=== PATIENT | female | born 1955 | race Caucasian/White ===

== ENCOUNTER 2022-08-08 10:46 | Emergency (ER) | payer MEDICARE, SELFPAY ==
--- NOTE | ~2022-08-08 | XR_ITS ---
EXAMINATION: XR ankle RT min 3V INDICATION: Right ankle pain and swelling, history of fracture TECHNIQUE: Four views of the right ankle are obtained. COMPARISON: None available FINDINGS: No definite acute fracture is identified. There is moderate arthritis at the tibiotalar thanh nt. There is mild soft tissue swelling of ankle. Posterior and plantar calcaneal enthesophytes are no stephanie. There is a healed fracture of the distal tibia. Moderate osteoarthritis is noted in the midfoot. IMPRESSION: 1. Osteoarthritis and prior fractures without evidence of acute osseous abnormality. Reviewed, dictated and finalized at location B. IMPRESSION: 1. Osteoarthritis and prior fractures without evidence of acute osseous abnorma lity.
[2022-08-08 11:06] VITALS: BP 125/79; PULSE 68; RESP 16; TEMP 36.2; O2SAT 96
--- NOTE | 2022-08-08 11:42 | ED.LOWEXIN ---
HPI - Extremity Injury (Lower) General Chief Complaint: Extremity Injury, Lower Stated Complaint: rt ankle pain Time Seen by Provider: 08/08/22 11:30 History of Present Illness HPI Narrative: Emma Marquez is a 67 yo female with a PMH of A. fib comes to [facility] with stiffness and tightness, swelling and right ankle that has been going on for a number of weeks and she is concerned that she is has an underlying injury and reinjuring it with her activities. She and her bike/Anai/walk a treadmill 3 times a week for a total of 20 miles each day and she describes that when she gets off the treadmill she can definitely feel it in her right ankle but yet she cannot really describe it as pain walking around normally. She has a plafond fracture that was healed nonsurgically, and states there is always a little bit of tightness and some edema around that site but this is more than is normally present Related Data Home Medications Medication Instructions Recorded Confirmed diltiazem HCl 180 mg 180 mg PO DAILY 08/21/21 08/08/22 capsule,extended release 24 hr metoprolol succinate 25 mg 25 mg PO DAILY 08/21/21 08/08/22 tablet,extended release 24 hr spironolactone 25 mg tablet 25 mg PO BID 10/14/21 08/08/22 Allergies Allergy/AdvReac Type Severity Reaction Status Date / Time ephedrine Allergy Unknown Unknown Verified 08/08/22 11:34 sulfamethoxazole Allergy Unknown Unknown Verified 08/08/22 11:34 [From Bactrim] trimethoprim [From Bactrim] Allergy Unknown Unknown Verified 08/08/22 11:34 Review of Systems Review of Systems: CONSTITUTIONAL: Denies fever, chills, sweats. EYES: Denies visual changes, redness, discharge. ENT: Denies rhinorrhea, congestion, sore throat, otalgia. CARDIOVASCULAR: Denies chest pain, palpitations, edema. RESPIRATORY: Denies dyspnea, wheezing, cough GASTROINTESTINAL: Denies abdominal pain, nausea, vomiting, diarrhea. GENITOURINARY: Denies dysuria, hematuria, abnormal discharge SKIN: Denies rash or itching. NEUROLOGIC: Denies numbness, or focal weakness. PSYCHIATRIC: Denies anxiety or depression. Right ankle edema and tightness PMFSH Past Medical History Medical History Atrial fibrillation and flutter History of shingles (~05/2007) History of stress test (~2011) History of tibial fracture (~07/03/12) Rt (Non Operative) Sleep apnea Surgical History Surgical History History of breast biopsy (~1988) History of breast biopsy (~04/2007) Cyst Removed (Negative) History of (~1979) History of cholecystectomy (~10/07/12) History of surgical removal of ganglion cyst (~09/2010) Lt Lateral Ankle History of wisdom tooth extraction (~2002) Lower Left History of wisdom tooth extraction (~2005) Upper Left History of wisdom tooth extraction (~2008) Right Hx of LASIK (~12/1999) Family History Family History Mother Kidney failure Hypertension Heart disease Father Hypertension Heart disease Parkinsons Social History Social History Smoking status: Never smoker Comments At time of signature, I agree with nursing past medical, surgical, social and family history. There is no relevant family history pertinent to the presenting complaint. Exam Narrative: GENERAL: This is a well-nourished, well-developed patient, in mild distress. HEAD: normocephalic, atraumatic. EYES: Sclera clear/white. Vision is grossly intact. EARS: External ears normal,. Hearing grossly intact. NOSE: External nose normal without nasal discharge, nares without redness, no rhinorrhea. THROAT: Mucous membranes moist, NECK: Neck supple, CARDIOVASCULAR: Regular rate and rhythm without murmurs, gallops, or rubs. RESPIRATORY: Clear to auscultation. Breath sounds equal bilaterally. N
== END 2022-08-08 12:00 | disposition home or self-care (01) ==
PROVIDERS: Emergency Provider Nurse Practitioner; PCP Internal Medicine
DX: M19.171 Post-traumatic osteoarthritis, right ankle and foot (principal); I48.91 Unspecified atrial fibrillation; G47.30 Sleep apnea, unspecified
CPT/HCPCS: 73610; 99213; G0463

== ENCOUNTER 2024-07-06 18:29 | Emergency (ER) | payer MEDICARE, SELFPAY ==
--- NOTE | 2024-07-06 18:40 | ECG_ITS ---
Test Date: 2024-07-06 18:51:21 Measurements Intervals [place] Rate: 70 P: 47 LA: 148 QRS: -9 QRSD: 98 T: 0 QT: 383 QTc: 414 Interpretive Statements SINUS RHYTHM WITH SINUS ARRHYTHMIA MODERATE VOLTAGE CRITERIA FOR LVH, CONSIDER NORMAL VARIANT [MEETS CRITERIA IN ONE OF: R(aVL), S(V1), R(V5), R(V5/V6)+S(V1)] No previous ECG available for comparison Electronically Signed On 07-07-2024 09:52:35 CDT by Dean Naylor M.D.
--- NOTE | 2024-07-06 18:40 | ED.ARRPALP ---
HPI - Arrhythmia/Palpitations General Chief Complaint: Arrhythmia/Palpitations Stated Complaint: heart racing Time Seen by Provider: 07/06/24 18:41 Source: patient, RN notes reviewed and old records reviewed Mode of arrival: ambulatory Limitations: no limitations History of Present Illness HPI narrative: Patient was prescribed a Medrol Dosepak for poison tahira 3 days ago. She reports that she has been taking it as prescribed, ever since she started taking, she has noticed that she is having heart palpitations. She denies any chest pain or shortness of breath. She reports that she is anxious since starting the medication. States that she took at 7 years ago, felt similarly. She did feel well enough to go cycling this afternoon. She did take a tracing of her heart with her smart phone device, there were isolated PVCs, no couplets or triplets. She is not in any distress upon arrival. She is accompanied by her Related Data Home Medications Medication Instructions Recorded Confirmed diltiazem HCl 180 mg 180 mg PO DAILY 08/21/21 07/06/24 capsule,extended release 24 hr metoprolol succinate 25 mg 25 mg PO DAILY 08/21/21 07/06/24 tablet,extended release 24 hr spironolactone 25 mg tablet 25 mg PO BID 10/14/21 07/06/24 doxycycline hyclate 20 mg tablet 40 mg PO DAILY 07/06/24 07/06/24 Allergies Allergy/AdvReac Type Severity Reaction Status Date / Time ephedrine AdvReac Severe Palpitation Verified 07/06/24 19:10 s sulfamethoxazole AdvReac Mild Photosensit Verified 07/06/24 19:10 [From Bactrim] ivity trimethoprim [From Bactrim] AdvReac Mild Photosensit Verified 07/06/24 19:10 ivity Review of Systems Review of Systems: All systems reviewed & are unremarkable except as noted in HPI and below Constitutional: Constitutional: Reports no additional constitutional complaints ENT: Reports system reviewed and no additional complaints, except as documented Cardiovascular: Cardiovascular: Reports as per HPI, Reports no additional cardiovascular complaints, Denies syncope, Reports irregular heart rhythm, Denies palpitations and Denies dyspnea Respiratory: Respiratory: Reports no additional respiratory complaints Gastrointestinal: Gastrointestinal: Reports no additional gastrointestinal complaints Integumentary/Breasts: Skin/Breast: Reports rash ( poison tahira being treated with Medrol Dosepak) Psychiatric: Psychiatric: Reports anxiety ( since starting Medrol Dosepak) [facility] Past Medical History Medical History Atrial fibrillation and flutter History of shingles (~05/2007) History of stress test (~2011) History of tibial fracture (~07/03/12) Rt (Non Operative) Sleep apnea Surgical History Surgical History History of breast biopsy (~1988) History of breast biopsy (~04/2007) Cyst Removed (Negative) History of (~1979) History of cholecystectomy (~10/07/12) History of surgical removal of ganglion cyst (~09/2010) Lt Lateral Ankle History of wisdom tooth extraction (~2002) Lower Left History of wisdom tooth extraction (~2005) Upper Left History of wisdom tooth extraction (~2008) Right Hx of LASIK (~12/1999) Family History Family History Mother Kidney failure Hypertension Heart disease Father Hypertension Heart disease Parkinsons Social History Social History Smoking status: Never smoker Exam Const: General: cooperative, no acute distress, alert and awake Orientation/consciousness: oriented to person, oriented to place and oriented to time HENMT: Head: normal to inspection Resp: Effort & Inspection: normal respiratory effort and able to speak in complete sentences Auscultation: clear to auscultation bilaterally, no crackles, no rales, no rhonchi and
[2024-07-06 18:48] VITALS: BP 165/76; PULSE 71; RESP 16; TEMP 36.3; O2SAT 97
[2024-07-06 19:04] VITALS: BP 155/85
== END 2024-07-06 19:07 | disposition home or self-care (01) ==
PROVIDERS: Emergency Provider Nurse Practitioner Family; PCP Internal Medicine
DX: R00.2 Palpitations (principal); I48.91 Unspecified atrial fibrillation
CPT/HCPCS: 93005; 99213; G0463

== ENCOUNTER 2024-07-08 12:54 | Emergency (ER) | payer MEDICARE, SELFPAY ==
[2024-07-08 12:58] VITALS: BP 146/86; PULSE 80; RESP 20; TEMP 36.4; O2SAT 99
--- NOTE | 2024-07-08 13:07 | ECG_ITS ---
Test Date: 2024-07-08 13:23:40 Measurements Intervals [place] Rate: 72 P: 29 NH: 144 QRS: -18 QRSD: 82 T: 30 QT: 373 QTc: 411 Interpretive Statements SINUS RHYTHM MINIMAL VOLTAGE CRITERIA FOR LVH, CONSIDER NORMAL VARIANT [MEETS CRITERIA IN ONE OF: R(aVL), S(V1), R(V5), R(V5/V6)+S(V1)] WITHIN NORMAL LIMITS Compared to ECG 07/06/2024 18:51:21 NO DIFFERENCE Electronically Signed On 07-08-2024 15:14:32 CDT by Rahul Montaño M.D.
[2024-07-08 15:37] VITALS: BP 135/72; PULSE 68; RESP 13; O2SAT 15
[2024-07-08 15:55] VITALS: PULSE 74
--- NOTE | 2024-07-08 16:03 | ED.ARRPALP ---
HPI - Arrhythmia/Palpitations General Chief Complaint: Arrhythmia/Palpitations Stated Complaint: PVCs from solumedrol Time Seen by Provider: 07/08/24 15:28 Source: patient Mode of arrival: ambulatory Limitations: no limitations History of Present Illness HPI narrative: this is a 69-year-old female who presents to the ED for chief complaint of possible PVCs. States that she stated steroid pack this week for poison tahira rash. States that she has been feeling some irregular heartbeats and took a rhythm strip at home that showed PVCs. she called the pharmacist and stopped the steroids 2 days ago. Denies chest pain, shortness of breath , abdominal pain, fevers, chills. States that poison tahira rash is getting better. Related Data Home Medications Medication Instructions Recorded Confirmed diltiazem HCl 180 mg 180 mg PO DAILY 08/21/21 07/06/24 capsule,extended release 24 hr metoprolol succinate 25 mg 25 mg PO DAILY 08/21/21 07/06/24 tablet,extended release 24 hr spironolactone 25 mg tablet 25 mg PO BID 10/14/21 07/06/24 doxycycline hyclate 20 mg tablet 40 mg PO DAILY 07/06/24 07/06/24 Allergies Allergy/AdvReac Type Severity Reaction Status Date / Time ephedrine AdvReac Severe Palpitation Verified 07/06/24 19:10 s sulfamethoxazole AdvReac Mild Photosensit Verified 07/06/24 19:10 [From Bactrim] ivity trimethoprim [From Bactrim] AdvReac Mild Photosensit Verified 07/06/24 19:10 ivity Review of Systems Review of Systems: All systems as dictated in HPI [facility] Past Medical History Medical History Atrial fibrillation and flutter History of shingles (~05/2007) History of stress test (~2011) History of tibial fracture (~07/03/12) Rt (Non Operative) Sleep apnea Surgical History Surgical History History of breast biopsy (~1988) History of breast biopsy (~04/2007) Cyst Removed (Negative) History of (~1979) History of cholecystectomy (~11/15/12) History of surgical removal of ganglion cyst (~09/2010) Lt Lateral Ankle History of wisdom tooth extraction (~2002) Lower Left History of wisdom tooth extraction (~2005) Upper Left History of wisdom tooth extraction (~2008) Right Hx of LASIK (~12/1999) Family History Family History Mother Kidney failure Hypertension Heart disease Father Hypertension Heart disease Parkinsons Social History Social History Smoking status: Never smoker Exam Narrative: GENERAL: Well-appearing, well-nourished, and in no acute distress. HEAD: Normocephalic, atraumatic. EYES: PERRLA and EOMI. ENT: Nares clear, no rhinorrhea or epistaxis. Mucous membranes moist. Oropharynx without tonsillar hypertrophy exudate or other lesions. NECK: Supple. No adenopathy or masses. CHEST: No respiratory distress. Clear to auscultation. No wheezes rales or rhonchi HEART: Regular rate and rhythm. No murmur heard. Normal peripheral pulses. ABDOMEN: Soft, nontender, nondistended, normal active bowel sounds. MSK: Normal range of motion. No edema. SKIN: Warm, dry, no rash. NEURO: Alert and oriented x4. No focal deficits. PSYCH: Normal mood and affect. Course Vital Signs Vital signs: Vital Signs Temperature 97.6 F 07/08/24 12:58 Pulse Rate 80 07/08/24 12:58 Respiratory Rate 20 07/08/24 12:58 Blood Pressure 146/86 H 07/08/24 12:58 Pulse Oximetry 99 07/08/24 12:58 Oxygen Delivery Room Air 07/08/24 12:58 Temperature 97.6 F 07/08/24 12:58 Pulse Rate 71 07/08/24 16:04 Respiratory Rate 12 07/08/24 16:04 Blood Pressure 116/77 07/08/24 16:04 Pulse Oximetry 99 07/08/24 16:04 Oxygen Delivery Room Air 07/08/24 12:58 MDM - Arrhythmia/Palpitations MDM Narrative Medical decision making anthony
[2024-07-08 16:04] VITALS: BP 116/77; PULSE 71; RESP 12; O2SAT 99
[2024-07-08 16:37] LABS: Basophils Absolute Auto 0.1 K/mm3 (0.0-0.1); Eosinophils Absolute Auto 0.1 K/mm3 (0-0.3); Eosinophils Percent Auto 0.9 % (0-4.4); Hemoglobin 15.8 g/dL (12.0-15.0); Immature Granulocyte Absolute 0.05 K/mm3 (0.00-0.031); Immature Granulocyte Percent A 0.4 % (0-0.5); Lymphocytes Absolute Auto 3.23 K/mm3 (0.9-3.2); Lymphocytes Percent Auto 28.7 % (18.3-44.2); Mean Corpuscular HGB Conc 33.6 g/dl (32-36); Mean Corpuscular Volume 95.1 fl (80-100); Monocytes Percent Auto 8.7 % (2.6-8.5); Neutrophils Absolute Auto 6.8 K/mm3 (1.3-6.7); Neutrophils Percent Auto 60.3 % (45.5-73.1); Platelet Count Result 252 k/mm3 (150-375); Red Blood Count 4.94 M/mm3 (4.2-5.4); Red Cell Distribution Width 13.6 % (11.5-14.5); White Blood Count 11.3 K/mm3 (4.5-10.0)
[2024-07-08 16:59] LABS: Magnesium 2.1 mg/dL (1.6-2.3)
[2024-07-08 17:00] LABS: Alanine Aminotransferase 22 U/L (6-35); Albumin Level 4.4 g/dL (3.5-5.1); Alkaline Phosphatase 71 U/L (38-126); Anion Gap 7 mmol/L (4-12); Aspartate Amino Transferase 27 U/L (14-36); Bilirubin,Total 0.6 mg/dL (0.2-1.3); Blood Urea Nitrogen 18 mg/dL (7-17); Calcium 9.4 mg/dL (8.4-10.2); Carbon Dioxide 33 mmol/L (22-30); Chloride 96 mmol/L (98-107); Estimated CRCL calculation 73 ml/min; Estimated Glomerular Filt Rate > 60; Glucose 107 mg/dL (65-110); Potassium 4.2 mmol/L (3.4-5.0); Sodium 136 mmol/L (137-145)
== END 2024-07-08 15:30 | disposition home or self-care (01) ==
PROVIDERS: Emergency Provider Physician Assistant; PCP Internal Medicine
DX: I49.3 Ventricular premature depolarization (principal); R00.2 Palpitations; I48.91 Unspecified atrial fibrillation; I48.92 Unspecified atrial flutter; G47.30 Sleep apnea, unspecified; Z90.49 Acquired absence of other specified parts of digestive tract
CPT/HCPCS: 36415; 80053; 83735; 85025; 93005; 99284

== ENCOUNTER 2024-08-27 01:14 | Emergency (ER) | payer MEDICARE, SELFPAY ==
[2024-08-27 01:18] VITALS: BP 172/99; PULSE 73; RESP 15; O2SAT 97
[2024-08-27 01:27] VITALS: O2SAT 98
[2024-08-27] MEDS: FAMOTIDINE 20 MG/2 ML VIAL IV PUSH (01:59)
[2024-08-27] MEDS: dexAMETHasone SOD PHOS INJ 10 MG/ML 1 ML VIAL IV PUSH (01:59)
[2024-08-27] MEDS: diphenhydrAMINE HCl INJ 50 MG/ML VIAL 25 MG IV PUSH (01:59)
[2024-08-27 02:17] VITALS: BP 135/78; PULSE 70; RESP 15; O2SAT 96
--- NOTE | 2024-08-27 02:18 | ED.GENADULT ---
HPI - General Adult General Chief complaint: Allergic Reaction Stated complaint: angioedema Time Seen by Provider: 08/27/24 01:35 History of Present Illness HPI narrative: Patient 69-year-old female presents emergency department with chief complaint of angioedema. The patient reports she ate some new cheese and some crackers this evening and reports that she started having swelling her lips this evening. The patient reports he is not on an SEBASTIÁN-inhibitor reports she has no prior history of Sebastián inhibitor or ARB dosing. Patient states that she has history of atrial fibrillation she is on a beta-logan and calcium channel logan the patient denies shortness of breath denies stridor denies trismus Related Data Home Medications Medication Instructions Recorded Confirmed diltiazem HCl 180 mg 180 mg PO DAILY 08/21/21 07/06/24 capsule,extended release 24 hr metoprolol succinate 25 mg 25 mg PO DAILY 08/21/21 07/06/24 tablet,extended release 24 hr spironolactone 25 mg tablet 25 mg PO BID 10/14/21 07/06/24 doxycycline hyclate 20 mg tablet 40 mg PO DAILY 07/06/24 07/06/24 Allergies Allergy/AdvReac Type Severity Reaction Status Date / Time ephedrine AdvReac Severe Palpitation Verified 08/27/24 01:22 s methylprednisolone AdvReac Intermediate Palpitation Verified 08/27/24 01:23 [From Solu-Medrol] s sulfamethoxazole AdvReac Mild Photosensit Verified 08/27/24 01:22 [From Bactrim] ivity trimethoprim [From Bactrim] AdvReac Mild Photosensit Verified 08/27/24 01:22 ivity Review of Systems Review of Systems: A 10 system review of systems was completed on the patient and is negative except for what is stated in the HPI. Nursing and ancillary documentation was reviewed. [facility] Past Medical History Medical History Atrial fibrillation and flutter History of shingles (~05/2007) History of stress test (~2011) History of tibial fracture (~07/03/12) Rt (Non Operative) Sleep apnea Surgical History Surgical History History of breast biopsy (~1988) History of breast biopsy (~04/2007) Cyst Removed (Negative) History of (~1979) History of cholecystectomy (~10/07/12) History of surgical removal of ganglion cyst (~09/2010) Lt Lateral Ankle History of wisdom tooth extraction (~2002) Lower Left History of wisdom tooth extraction (~2005) Upper Left History of wisdom tooth extraction (~2008) Right Hx of LASIK (~12/1999) Family History Family History Mother Kidney failure Hypertension Heart disease Father Hypertension Heart disease Parkinsons Social History Social History Smoking status: Never smoker Exam Narrative: GENERAL: Well-appearing, well-nourished, and in no acute distress. HEAD: Normocephalic, atraumatic. EYES: PERRLA and EOMI. ENT: Nares clear, no rhinorrhea or epistaxis. Mucous membranes moist. There is angioedema present of the lips there is no trismus there is no stridor there is no angioedema of the tongue there is no airway compromise NECK: Supple. CHEST: Clear to auscultation. No respiratory distress. HEART: Regular rate and rhythm. No murmur heard. Normal peripheral pulses. ABDOMEN: Soft, nontender, nondistended, normal active bowel sounds. EXTREMITIES: Normal range of motion. No edema. SKIN: Warm, dry, no rash. NEURO: No focal deficits. Alert and oriented x3. PSYCH: Normal mood and affect. Course Vital Signs Vital signs: Vital Signs Pulse Rate 73 08/27/24 01:18 Respiratory Rate 15 08/27/24 01:18 Blood Pressure 172/99 H 08/27/24 01:18 Pulse Oximetry 97 08/27/24 01:18 Oxygen Delivery Room Air 08/27/24 01:18 Pulse Rate 70 08/27/24 02:17 Respiratory Rate 15 08/27/24 02:17 Bloo
[2024-08-27 03:15] VITALS: BP 152/80; PULSE 67; RESP 15; O2SAT 98
== END 2024-08-27 03:32 | disposition home or self-care (01) ==
PROVIDERS: Emergency Provider Emergency Medicine; PCP Internal Medicine
DX: T78.3XXA Angioneurotic edema, initial encounter (principal); T78.40XA Allergy, unspecified, initial encounter; X58.XXXA Exposure to other specified factors, initial encounter; I48.91 Unspecified atrial fibrillation; I48.92 Unspecified atrial flutter; G47.30 Sleep apnea, unspecified; Z90.49 Acquired absence of other specified parts of digestive tract; Z79.899 Other long term (current) drug therapy
CPT/HCPCS: 96374; 96375; 99284; J1100; J1200

== ENCOUNTER 2025-04-04 12:18 | Emergency (ER) | payer MEDICARE, SELFPAY ==
--- OUTSIDE RECORDS SUMMARY | 2025-04-04 12:22 | XMS_ITS | Referral Summary ---
Author Organization [facility] [address] Address [address] [place] [address] Phone Care Team Providers Care Naval Engineer Name Role Phone Jayce Naylor MD Primary Care Provider [phone] Brittni Carlson MD Unavailable [phone] [phone] Allergies Active Allergy Reactions Criticality Noted Date Comments Ephedrine Other (See comments) Medium Atrial fibrillation Epinephrine Other (See comments) Low Atrial fibrillation Sulfamethoxazole Rash Medium Trimethoprim Rash Medium Medications dilTIAZem XR (CARDIZEM CD) 180 mg 24 hr capsule take 1 capsule (180MG) by oral route every day 0 2 Active metoprolol XL (TOPROL-XL) 25 mg 24 hr tablet take 1 tablet by oral route every day 0 0 4 Active aspirin 325 mg tablet take 1 tablet by oral route every day 0 0 5 Active Additional Information Patient taking differently:325 mgoral 2 times weekly, Reported on 09/28/2023 spironolactone (ALDACTONE) 25 mg tablet Take 1 tablet (25 mg total) by mouth 2 (two) times a day 3 8 Active Active Problems Problem Noted Date Diagnosed Date Obesity (BMI 30-39.9) 09/21/2020 Systemic hypertension 09/17/2017 Immunizations Immunization Administration Dates Next Due Influenza, Trivalent, IM (MDV) 09/06/2015 Social History Tobacco Use Types Packs/Day Years Used Date Smoking Tobacco: Never Smokeless Tobacco: Never Tobacco Cessation:Counseling Given: Not Answered Alcohol Use Standard Drinks/Week Comments Yes 0 (1 standard drink = 0.6 oz pur e alcohol) Comments No Sex and Gender Information Value Date Recorded Sex Assigned at Not on file Legal Sex 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 Gender Identity Not on file Sexual Orientation Not on file Occupation Industry Job Start Date Job End Date retired Not on file Not on file Not on file Last Filed Vital Signs Vital Sign Reading Time Taken Comments Blood Pressure 119/77 09/28/2023 9:04 AM VENEER LATHE OPERATOR Large Adult Cuff Pulse 66 09/28/2023 9:04 AM VENEER LATHE OPERATOR Temperature 35.9 C (96.6 F) 09/21/2020 8:57 AM CDT Respiratory Rate 16 09/28/2023 9:04 AM VENEER LATHE OPERATOR Oxygen Saturation 95% 09/23/2021 9:2 0 AM CDT Inhaled Oxygen Concentration - - Weight 97.5 kg (215 lb) 09/28/2023 9:04 AM VENEER LATHE OPERATOR Height 165.1 cm (5' 5 ) 09/28/2023 9:04 AM VENEER LATHE OPERATOR Body Mass Index 35.78 09/28/2023 9:04 AM VENEER LATHE OPERATOR Plan of Treatment Not on file Insurance [employer] [facility] [address] MEDICARE [facility] MEDICARE Care Teams Naval Engineer Relationship Specialty Start Date End Date Jayce Naylor [place] [address] PCP - General 04/15/12 Brittni Carlson MD [address] [place] [address] Obstetrics and Gynecology 09/11/17
--- OUTSIDE RECORDS SUMMARY | 2025-04-04 12:22 | XMS_ITS | Encounter Summary ---
Author Organization [facility] Address [facility] [place] [address] Care Team Providers Care Seamer Panty Hose Name Role Phone Jayce Naylor MD Primary Care Provider [phone] Encounter Details Date Type Department Care Team (Late Contact Info) Description 12/14/2024 CSRwaret Message Enc [facility] [place] [address] [place], [place] [id number] Rahul Helton MD Three [facility]. 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 [address] [place] [address] 09/08/2025 10:15 AM CDT Office Visit [facility] [address] [place] [address] Satish Soto MD Three [facility]. [address] [place] [address] documented as of this encounter Visit Diagnoses Not on filedocumented in this encounter Care Teams Seamer Panty Hose Relationship Specialty Start Date End Date Jayce Naylor MD [address] [place] [address] PCP - General INTERNAL MEDICINE 07/05/24 documented as of this encounter
--- OUTSIDE RECORDS SUMMARY | 2025-04-04 12:22 | XMS_ITS | Encounter Summary ---
Author Organization [facility] Address [address] [place] [address] Care Team Providers Care Developer Support Engineer Name Role Phone Jayce Naylor MD Primary Care Provider [phone] Encounter Details Date Type Department Care Team (Late st Contact Info) Description 09/12/2024 Abstract [facility] [address] [place] [address] Rupal Armendariz MA Social History Tobacco Use Types Packs/Day Years Used Date Smoking Tobacco: Former Cigarettes 1 - 1981 Smokeless Tobacco: Never Alcohol Use Standard Drinks/Week Comments Yes 1 (1 standard drink = 0.6 oz pur e alcohol) Comments No Sex and Gender Information Value Date Recorded Sex Assigned at Female 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 [facility] [address] [place] [address] 09/08/2025 10:15 AM CDT Office Visit [facility] [address] [place] [address] Satish Soto MD Three [facility]. [facility] [address] [place] [address] documented as of this encounter Procedures Procedure Name Priority Date/Time Associated Diagnosis Comments COMPREHENSIVE METABOLIC PANEL Routine 07/08/2024 CBC, MANUAL DIFF Routine 07/08/2024 documented in this encounter Results * COMPREHENSIVE METABOLIC PANEL (07/08/2024) SODIUM S/P/B 136 GLUCOSE 107 mg/dL AST 27 BUN 18 CREATININE S/P/B 0.70 0.5 - 1.0 CALCIUM S/P/B 9.4 POTASSIUM S/P/B 4.2 CHLORIDE S/P/B 96 ALT 22 GFR ESTIMATE 73 us Default History Genericprovider LABORATORY Final Result * CBC, MANUAL DIFF (07/08/2024) WBC 11.3 HGB 15.8 HCT 47 PLT 252 us Default History Genericprovider LABORATORY Final Result documented in this encounter Visit Diagnoses Not on filedocumented in this encounter Care Teams Developer Support Engineer Relationship Specialty Start Date End Date Jayce Naylor MD [address] [place] [address] PCP - General INTERNAL MEDICINE 07/05/24 documented as of this encounter
--- OUTSIDE RECORDS SUMMARY | 2025-04-04 12:22 | XMS_ITS | Clinical Summary ---
Author Organization [facility] [address] Address [address] [place] [address] Phone Care Team Providers Care Carton Counter Feeder Name Role Phone Jayce Naylor MD Primary Care Provider [phone] Brittni Carlson MD Unavailable [phone] Allergies Active Allergy Reactions Criticality Noted Date [...] Next Due Influenza, Trivalent, IM (MDV) 09/06/2015 Surgical History Surgery Date Site/Laterality Comments LASIK 11/23/1999 - 11/22/2000 SECTION 11/23/1979 - 11/22/1980 LAPAROSCOPIC CHOLECYSTECTOMY 11/23/2011 - 11/22/2012 BREAST BIOPSY 11/23/1988 - 11/22/1989 ANKLE GANGLION CYST EXCISION 11/23/2009 - 11/22/2010 Medical History Medical History Date Comments Atrial fibrillation (HCC) 1980 Shingles 2006 Premature menopause 1992 Fracture of right tibia 2011 Mild pulmonary hypertension (HCC) 2013 Family History Medical History Relation Name Comments Coronary artery disease Father Heart failure Father COD Hypertension Father Parkinsonism Father Parkinsonism Maternal Grandfather COD Atrial fibrillation Mother Hypertension Mother Kidney failure Mother COD Osteoporosis Mother Breast cancer Mother's Sister Relation Name Status Comments Father (Age 88) Maternal Grandfather Mother (Age 93) Mother's Sister Social History Tobacco Use Types Packs/Day Years Used Date Smoking Tobacco: Never Smokeless Tobacco: Never Tobacco Cessation:Counseling Given: Not Answered Alcohol Use Standard Drinks/Week Comments Yes 0 (1 standard drink = 0.6 oz pur e alcohol) Comments No Sex and Gender Information Value Date Recorded Sex Assigned at Not on file 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 Gender Identity Not on file Sexual Orientation Not on file Occupation Industry Job Start Date Job End Date retired Not on file Not on file Not on file Obstetrics History Para Term AB IAB SAB Ectopic Multiple Livin g Live Births 1 1 1 0 0 0 0 0 0 1 1 Date Outcome GA Total Labor Labor/2nd/3rd Weight Sex Type Anes PTL Cherrie A1 A5 Name Clin Term Last Filed Vital Signs Vital Sign Reading Time Taken Comments Blood Pressure 119/77 09/28/2023 9:04 AM FURNITURE DELIVERY DRIVER Large Adult Cuff Pulse 66 09/28/2023 9:04 AM FURNITURE DELIVERY DRIVER Temperature 35.9 C (96.6 F) 09/21/2020 8:57 AM CDT Respiratory Rate 16 09/28/2023 9:04 AM FURNITURE DELIVERY DRIVER Oxygen Saturation 95% 09/23/2021 9:2 0 AM CDT Inhaled Oxygen Concentration - - Weight 97.5 kg (215 lb) 09/28/2023 9:04 AM FURNITURE DELIVERY DRIVER Height 165.1 cm (5' 5 ) 09/28/2023 9:04 AM FURNITURE DELIVERY DRIVER Body Mass Index 35.78 09/28/2023 9:04 AM FURNITURE DELIVERY DRIVER Plan of Treatment Health Maintenance Due Date Last Done Comments Breast Cancer Screening-Mammogram 1953 Colon Cancer Screening-Colonoscopy 1955 Depression Screening 1953 Fall Risk Assessment 1953 Hepatitis C Screening 1953 Osteoporosis Screening-Bone Density Scan 1953 Hepatitis B Screening 1971 Well Visit 65+ 09/17/2018 09/17/2017 Influenza Vaccine (#1) 2024 , 07/24/2020, 09/29/2019, Additional history exists DTaP/Tdap/Td Vaccine (2 - Td or Tdap) 03/29/2031 03/29/2021 Zoster Vaccine Completed 06/02/2019, 12/2018, 11/23/2014 Pneumococcal vaccine 65+ Completed 09/12/2019, 08/23 [place] [address] [facility] Care Teams Carton Counter Feeder Relationship Specialty Start Date End Date Jayce Naylor MD [address] [place] [address] PCP - General 04/15/12 Brittni Carlson MD [address] [place] [address] Obstetrics and Gynecology 09/11/17
--- OUTSIDE RECORDS SUMMARY | 2025-04-04 12:22 | XMS_ITS | Encounter Summary ---
Author Organization [facility] Address Formerly [facility] [place] [address] Care Team Providers Care Die Casting Supervisor Name Role Phone Jayce Naylor MD Primary Care Provider [phone] Encounter Details Date Type Department Care Team (Late Contact Info) Description 12/28/2024 [employer] Message Enc [facility] [address] [phone] Yudi Bond PA [address] [facility] [address] [place], [place] [phone] Appointment Social History Tobacco Use Types Packs/Day Years Used Date Smoking Tobacco: Former Cigarettes 1 983 - 1981 Smokeless Tobacco: Never Alcohol Use Standard Drinks/Week Comments Not Currently 1.7 (1 standard drink = 0.6 oz p ure alcohol) Comments No Sex and Gender Information Value Date Recorded Sex Assigned at Female 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 [address] [place] [address] 09/08/2025 10:15 AM CDT Office Visit [facility] [address] [place] [address] Satish Soto MD [facility]. [address] [place] [address] documented as of this encounter Visit Diagnoses Not on filedocumented in this encounter Care Teams Die Casting Supervisor Relationship Specialty Start Date End Date Jayce Naylor MD [address] [place] [address] PCP - General INTERNAL MEDICINE 07/05/24 documented as of this encounter
--- OUTSIDE RECORDS SUMMARY | 2025-04-04 12:22 | XMS_ITS | Clinical Summary ---
Author Organization [facility] Address [address] [place] [address] Care Team Providers Care Hot Pipe Gauger Name Role Phone Jayce Naylor MD Primary Care Provider [phone] Allergies Active Allergy Reactions Criticality Noted Date Comments Diltiazem Hives 08/31/2024 IV - PO does not bother her Ephedrine Other (see comment) Medium 05/16/2019 Atrial fibrillation Sudafed - caused first episode of a fib Methylprednisolone Other (see comment) 11/25/2024 PVCs Sulfamethoxazole-Trimethopr im Rash Medium 07/05/2024 Pt was also in sun, unsure if allergy to Bactrim Medications dilTIAZem CD (CARDIZEM CD) 180 MG 24 hr capsule Take 1 capsule (180 mg total) by mouth daily. Active Doxycycline Hyclate 20 MG Tab Take 40 mg by mouth daily. Active ketotifen (ZADITOR) 0.035 % ophthalmic solution 1 drop 2 (two) times daily. Active metoprolol succinate ER (TOPROL-XL) 50 MG 24 hr tablet Take 1 tablet (50 mg total) by mouth nightly. 10/31/2024 Active spironolactone (ALDACTONE) 50 MG tablet Take 1 tablet (50 mg total) by mouth daily. 10/31/2024 Active tirzepatide (ZEPBOUND) 2.5 MG/0.5ML injection Inject 2.5 mg into the skin every 7 days. 12/12/2024 Active aspirin EC (ECOTRIN) 81 MG tablet Take 1 tablet (81 mg total) by mouth daily. 30 tablet 3 01/12/2025 Active clopidogrel (PLAVIX) 75 MG tablet Take 1 tablet (75 mg total) by mouth daily. 30 tablet 3 01/12/2025 Active Active Problems Problem Noted Date Diagnosed Date Class 2 obesity due to exces s calories without serious comorbidity with body mass index (BMI) of 37.0 to 37.9 in adult 12/30/2024 Assessment & Plan (12/30/2024 10:20 AM GROUNDS KEEPER): She is obese with a Body mass index is 37.11 kg/m . She was educated on lifestyle modifications including diet and exercise. PVC (premature ventricular contraction) 12/30/19 Assessment & Plan (12/30/2024 10:21 AM GROUNDS KEEPER): Having monitor to assess PVC burden. Aura 12/29/2024 Vitreous syneresis 12/29/2024 H/O cardiac radiofrequency ablation 12/12/2024 Overview (12/29/2024): 12/02/24 Presence of Watchman left atrial appendage closu re device 12/12/2024 Overview (12/29/2024): 12/02/24 Assessment & Plan (12/30/2024 10:19 AM GROUNDS KEEPER): Continue apixaban until repeat DINA and then required to antiplatelet therapy. Atrial fibrillation ([facility] HHS/[facility]) 12/02/2024 Paroxysmal atrial fibrillation ([facility]) 08/29/2024 Assessment & Plan (12/30/2024 10:19 AM GROUNDS KEEPER): She is status post pulmonary vein isolation. Continue follow-up with electrophysiology. Continue Eliquis until repeat DINA. Continue metoprolol and Cardizem. Assessment & Plan (09/08/2024 10:44 AM CDT): She has documented paroxysmal atrial fibrillation. I discussed in detail the risk of stroke with atrial fibrillation and also discussed management including atrial fibrillation ablation and left atrial appendage closure. I strongly recommended electrophysiology consultation. I also explained to her that there is a significant risk of stroke with atrial fibrillation and explained that aspirin is not enough. I had a lengthy discussion with the patient explaining the role of atrial fibrillation and thromboembolic risk. We specifically discussed the role of the left atrial appendage as a source for thromboembolic processes. Risks for the left atrial appendage clsoure procedure include but are not limited to: bleeding, vascular damage, cardiac perforation requiring pericardiocentesis and possible surgical sternotomy by cardiothoracic surgery, cerebrovascular accident, myocardial infarction, and even rarely . Per published data: 6.5% procedure/device related adverse events per PROTECT AF, 3.0% procedure/device related event in the CAP registry, and in the PREVAIL trial the complication rate was 2.2%. A recent real world registry data shows approximately the similar results as PREVAIL trial. The patient understands that dual antiplatelet therapy will require post left atrial appendage closure. We can try to make an exception and is off label for single antiplatelet therapy. We will repeat a DINA 6 weeks post left atrial appendage implantation. Essential hypertension, benign 04/14/2022 Assessment & Plan (12/30/2024 10:20 AM GROUNDS KEEPER): Her blood pressure is well-controlled. Continue Cardizem and metoprolol. RIVERA (obstructive sleep apnea) Overview (09/08/2024): wears mouth guard Resolved Problems Problem Noted Date Diagnosed Date Resolved Date Encounter for screening colonoscopy 07/05/2024 07/11/2024 Encounter for screening colonoscopy 07/05/2024 09/12/2024 Hyperglycemia 04/14/2022 12/22/2024 Encounters Date Type Department Care Team Description 01/12/2025 12:47 PM GROUNDS KEEPER Anesthesia Event [facility] [place] [address] Ludy Meng MD Baecht, Justin, CAM 01/12/2025 10:47 AM GROUNDS KEEPER - 01/12/2025 11:59 PM GROUNDS KEEPER Hospital Encounter [place] [address] Doug Hernandez MD Discharge Disposition: Home or Self Care (Routine Discharge) 01/12/2025 10:47 AM GROUNDS KEEPER - 01/12/2025 3:00 PM GROUNDS KEEPER Hospital Encounter [facility] [place] [address] Doug Hernandez MD Portera Mankins, Sally B, MD Discharge Disposition: Home or Self Care (Routine Discharge) 01/12/2025 Travel 01/12/2025 Orders Only [facility] [place] [address] Doug Hernandez MD 01/11/2025 MyChart Message Enc [facility], [address] [address] Rahul Helton MD 48hour monitor 01/05/2025 9:30 AM GROUNDS KEEPER Telephone [employer] [facility], [address] [address] Yudi Bond, PA Holter Monitor from Last 3 Months Immunizations Immunization Administration Dates Next Due Arexvy Respiratory Syncytial Virus (RSV, adjuvanted) 0.5 mL, PF 10/12/2023,10/01/2023 Fluzone High Dose (IIV, triv alent, 0.5mL) 09/02/2018 Fluzone High Dose - >Age 65 (Prefilled Syringe) 09/16/2023 Influenza (Generic) 08/01/2021,09/06/2015 Influenza Adult (Generic) 08/01/2024,03/2022,07/24/2020,2018,09/01/2018 Pneumococcal (Pneumovax 23) 09/12/2019 Pneumococcal (Prevnar 13) 09/02/2018,09/01/2018 Pneumococcal (Prevnar 20) 05/16/2024 Shingrix 06/02/2019,03/24/2019 Tdap (Generic) 03/29/2021 Zoster (Zostavax) 79350 Unt/0.65Ml 11/23/2014 Family History Medical History Relation Comments Alcohol Abuse Brother 1 Hypertension Brother 2 CHF Father Heart Attack Father Heart Disease Father Hypertension Father Open Heart Father Parkinson's Disease Father Arthritis Maternal Grandmother Hypertension Mother Kidney Disease Mother End of life kidn ey failure pacemaker Mother Early Paternal Grandfather Parkinson s Stroke Paternal Grandmother Vision loss Paternal Uncle Hypertension Sister Diabetes Neg Hx Paternal great u ncle Relation Status Comments Brother 1 Brother 2 Father Maternal Grandmother Mother Paternal Grandfather Paternal Grandmother Paternal Uncle Sister Social History Tobacco Use Types Packs/Day Years Used Date Smoking Tobacco: Former Cigarettes 1 983 - 1981 Smokeless Tobacco: Never Tobacco Cessation:Counseling Given: Not Answered Alcohol Use Standard Drinks/Week Comments Not Currently 1.7 (1 standard drink = 0.6 oz p ure alcohol) Comments No Sex and Gender Information Value Date Recorded Sex Assigned at Female 12/29/2024 12:15 PM GROUNDS KEEPER Legal Sex Female 2:43 PM CDT Gender Identity Not on file Sexual Orientation Not on file Last Filed Vital Signs Vital Sign Reading Time Taken Comments Blood Pressure 139/75 01/12/2025 2:30 PM GROUNDS KEEPER Pulse 60 01/12/2025 2:30 PM GROUNDS KEEPER Temperature 36.6 C (97.8 F) 01/12/2025 11:40 AM GROUNDS KEEPER Respiratory Rate 15 01/12/2025 2:30 PM GROUNDS KEEPER Oxygen Saturation 95% 01/12/2025 2:30 PM GROUNDS KEEPER Inhaled Oxygen Concentration - - Weight 102.4 kg (225 lb 12 oz) 01/12/2025 11:40 AM GROUNDS KEEPER Height 165.1 cm (5' 5 ) 01/12/2025 11:40 AM GROUNDS KEEPER Body Mass Index 37.57 01/12/2025 11:40 AM GROUNDS KEEPER Plan of Treatment Upcoming Encounters Date Type Department Care Team (Late st Contact Info) Description 06/01/2025 11:30 AM CDT [facility] [address] [place] [address] Rahul Helton MD [facility] [address] [place], [place] [id number] 09/08/2025 10:15 AM CDT [facility] [address] [place] [id number] Satish Soto MD [facility]. [facility] [address] [place] [address] Health Maintenance Due Date Last Done Comments Hepatitis C 1973 Annual Medicare Wellness Visit 2018 COVID-19 Vaccine ( season) 2024 08/12/2023, 09/08/2022, 03/10/2022, Additional history exists PHQ-2 (Physician Piercy) 11/23/2024 Mammogram Screening 05/16/2026 05/16/2024, 03/18/2023, 02/06/2022, Additional history exists DTaP, Tdap and Td Vaccines (2 - Td or Tdap) 03/29/2031 03/29/2021 Colorectal Cancer Screening Colonoscopy (10 Years) 09/14/2034 09/14/2024 Zoster Vaccines Completed 06/02/2019, 12/2018, 11/23/2014 Dexa Scan (General) Completed 04/10/2021, RSV Immunization or 60+ Years Completed 10/12/2023, 10/01/2023 Pneumococcal Vaccine: 50+ Years Completed 05/16/2024, 09/12/2019, 09/02/2018, Additional history exists Meningococcal B Vaccine Aged Out No l onger eligible based on patient's age to complete this topic Meningococcal Vaccine Aged Out No rose marie diana eligible based on patient's age to complete this topic RSV Immunizations Under 20 Months Aged Out No longer eligible based on patient's age to complete this topic Medical Devices Implanted Type Area Stem Processing Machine Operator Device Identifier Shelf Expiration Date Model / Serial / Lot [facility]-2024 Implanted:Qty: 1 on 12/02/2024 by Rahul Helton MD [employer] [id number] 09/22/2027 / / [id number] Procedures Procedure Name Priority Date/Time Associated Diagnosis Comments XTRNL ECG REC<48 HRS RECORDING SCAN A/R R&I Routine 01/13/2025 8:50 AM GROUNDS KEEPER PVC's (premature ventricular contractions) USE TRANSESOPHAGEAL ECHO Routine 01/12/2025 12:59 PM GROUNDS KEEPER Paroxysmal atrial fibrillation (CMS/HCC HHS/HCC) PROTHROMBIN TIME, VENOUS Routine 01/12/2025 10:52 AM GROUNDS KEEPER Presence of Watchman left atrial appendage closure device Pre-op testing Atrial fibrillation (CMS/HCC HHS/HCC) BASIC METABOLIC PANEL Routine 01/12/2025 10:52 AM GROUNDS KEEPER Presence of Watchman left atrial appendage closure device Pre-op testing Atrial fibrillation (CMS/HCC HHS/HCC) CBC W/DIFF AUTOMATED Routine 01/12/2025 10:52 AM GROUNDS KEEPER Presence of Watchman left atrial appendage closure device Pre-op testing Atrial fibrillation (CMS/HCC HHS/HCC) from Last 3 Months Results * CLINIC - HOLTER MONITOR - ECG UP TO 48 HRS,COMPLETE (01/13/2025 8:50 AM GROUNDS KEEPER) Impressions THORPE 3dim - 01/13/2025 8:50 AM GROUNDS KEEPER [place], [place] [address] HOLTER MONITOR REPORT Patient Name: Emma Marquez : 1955 Elevator Service Technician Date: 01/07/2025@8:59 AM Performed At: [facility], [place] Interpreting Electrode Turner And Finisher: Rahul Helton MD PCP: JAYCE NAYLOR MD Ordering Provider: Rahul Helton MD INDICATION: Premature ventricular complexes DURATION OF MONITORIN hours, 28 minutes BASELINE RHYTHM: Sinus rhythm HEART RATE: Minimum: 53 BPM, Maximum: 106 BPM, Average: 74 BPM PAUSES: 0 (> 3.0 seconds) INTERPRETATION: A 48hrs Holter was analyzed which did include symptom triggered episodes. There were 217,019 QRS complexes analyzed. The baseline rhythm was sinus rhythm. There were occasional isolated premature ventricular contractions (2%). There was also rare isolated premature atrial contractions (<1%). There was 1 hour and 31 minutes of bradycardia recorded. There was 34 minutes of tachycardia. The patient triggered events were for no reported symptoms and correlated with sinus rhythm. CONCLUSION: 48hrs Holter with was an overall low to modest burden of ventricular ectopy. Interpreting Electrode Turner And Finisher: Dr. Rahul Helton us Yudi MEDEROS PROCEDURES Final R esult [facility] * USE TRANSESOPHAGEAL ECHO (01/12/2025 12:59 PM GROUNDS KEEPER) Anatomical Region Laterality Modality Cardiac Administrative Underwriter 01/12/2025 12:3 2 PM GROUNDS KEEPER Narrative 01/12/2025 5:56 PM GROUNDS KEEPER DINA Report Pat.Name: EMMA MARQUEZ Pat.ID: [id number] .Date: 01/12/2025 Refer: [id number] GOLD Parnell EWDPROV EWDPROV Exam Time: 12:32:00 PM Study Type:TRANSESOPHAGEAL ECHO (DINA) Height: 64 in Weight: 188 lb BSA: 1.91 m2 Age: 7 1955,69Y Sex: F BP: 128/70 HR: 69 bpm Sonogrphr: Norma Mchugh RD, [facility] Pat. Stat.:Outpatient Reason for Study:Atrial fibrillation / flutter, Post LAAO-Watchman Procedures: 2D, 3 Dimensional imaging with full Doppler and color interigation, Doppler, Color Flow, Definity was used to enhance endocardial definition. Transesophageal Race: W ++++++++++++++++++++++++++++++++++++ SUMMARY: ++++++++++++++++++++++++++++++++++++ The left ventricular size is normal. The left ventricular systolic function is normal. The right ventricular size is normal. Right ventricular systolic function is normal. Watchman device seen well-seated in the ostium of the left atrial appendage. There is no obvious color flow Doppler seen around the device shoulders. No obvious thrombus is seen on the device surface. No evidence of pericardial effusion. The aortic valve is trileaflet. No evidence of aortic valve regurgitation. Mild tricuspid regurgitation. Right ventricular systolic pressure is 38 (+CVP) mmHg. ++++++++++++++++++++++++++++++++++++ FINDINGS: ++++++++++++++++++++++++++++++++++++ DINA: The patient was counseled and an informed consent was obtained. The posterior pharynx was anesthetized. The patient was placed in a left lateral recumbent position and a plastic bite was inserted into the mouth. IV sedation was administered. LV: The left ventricular size is normal. The left ventricular systolic function is normal. RV: The right ventricular size is normal. Right ventricular systolic function is normal. LA: Watchman device seen well-seated in the ostium of the left atrial appendage. There is no obvious color flow Doppler seen around the device shoulders. No obvious thrombus is seen on the device surface. RA: Right atrial size is normal. BELEN: No evidence of pericardial effusion. AV: The aortic valve is trileaflet. No evidence of aortic valve regurgitation. PV: Trace pulmonic regurgitation. TV: Mild tricuspid regurgitation. Right ventricular systolic pressure is 38 (+CVP) mmHg. ++++++++++++++++++++++++++++++++++++ DINA: ++++++++++++++++++++++++++++++++++++ Pre DINA BP HR Post DINA BP HR 128/70 69 152/80 70 Meds: Lidocaine gel was applied to throat. Propofol or Diprivan administered by Anesthesia Staff ++++++++++++++++++++++++++++++++++++ MEASUREMENTS: ++++++++++++++++++++++++++++++++++++ DOPPLER TV Regurg Flow TV pkPG 38 mmHg TV pkVel 309 cm/s (30-70)* <Electronic Signature> 01/12/2025 05:56 PM Doug Hernandez M.D. Procedure Note Doug Hernandez MD - 01/12/2025 DINA Report Pat.Name: EMMA MARQUEZ Pat.ID: [id number] .Date: 01/12/2025 [place].: [id number] GOLD Parnell EWDPROV EWDPROV Exam Time: 12:32:00 PM Study Type:TRANSESOPHAGEAL ECHO (DINA) Height: 64 in Weight: 188 lb BSA: 1.91 m2 Age: 7 1955,69Y Sex: F BP: 128/70 HR: 69 bpm Sonogrphr: Norma Mchugh RD, [facility] Pat. Stat.:Outpatient Reason for Study:Atrial fibrillation / flutter, Post LAAO-Watchman Procedures: 2D, 3 Dimensional imaging with full Doppler and color interigation, Doppler, Color Flow, Definity was used to enhance endocardial definition. Transesophageal Race: W ++++++++++++++++++++++++++++++++++++ SUMMARY: ++++++++++++++++++++++++++++++++++++ The left ventricular size is normal. The left ventricular systolic function is normal. The right ventricular size is normal. Right ventricular systolic function is normal. Watchman device seen well-seated in the ostium of the left atrial appendage. There is no obvious color flow Doppler seen around the device shoulders. No obvious thrombus is seen on the device surface. No evidence of pericardial effusion. The aortic valve is trileaflet. No evidence of aortic valve regurgitation. Mild tricuspid regurgitation. Right ventricular systolic pressure is 38 (+CVP) mmHg. ++++++++++++++++++++++++++++++++++++ FINDINGS: ++++++++++++++++++++++++++++++++++++ DINA: The patient was counseled and an informed consent was obtained. The posterior pharynx was anesthetized. The patient was placed in a left lateral recumbent position and a plastic bite was inserted into the mouth. IV sedation was administered. LV: The left ventricular size is normal. The left ventricular systolic function is normal. RV: The right ventricular size is normal. Right ventricular systolic function is normal. LA: Watchman device seen well-seated in the ostium of the left atrial appendage. There is no obvious color flow Doppler seen around the device shoulders. No obvious thrombus is seen on the device surface. RA: Right atrial size is normal. BELEN: No evidence of pericardial effusion. AV: The aortic valve is trileaflet. No evidence of aortic valve regurgitation. PV: Trace pulmonic regurgitation. TV: Mild tricuspid regurgitation. Right ventricular systolic pressure is 38 (+CVP) mmHg. ++++++++++++++++++++++++++++++++++++ DINA: ++++++++++++++++++++++++++++++++++++ Pre DINA BP HR Post DINA BP HR 128/70 69 152/80 70 Meds: Lidocaine gel was applied to throat. Propofol or Diprivan administered by Anesthesia Staff ++++++++++++++++++++++++++++++++++++ MEASUREMENTS: ++++++++++++++++++++++++++++++++++++ DOPPLER TV Regurg Flow TV pkPG 38 mmHg TV pkVel 309 cm/s (30-70)* <Electronic Signature> 01/12/2025 05:56 PM Doug Hernandez M.D. us Doug Hernandez MD ECHO Final Result * (ABNORMAL) PROTIME/INR, VENOUS (01/12/2025 10:52 AM GROUNDS KEEPER) PROTIME 16.8(H) 10.2 - 12.9 SEC 01/12/2025 12:39 PM GROUNDS KEEPER [facility] INR 1.5 01/12/2025 12:39 PM GROUNDS KEEPER [facility] Comment: Recommended INR Therapeutic Goals: 2.0-3.0 Routine Therapy 2.5-3.5 Mechanical Prosthetic Valves (High Risk) 01/12/2025 10:5 2 AM GROUNDS KEEPER us Doug Hernandez MD LABORATORY Final Result Performing Organization Address City/State/[facility] Co de Phone Number [facility] [address] [place] [address], * (ABNORMAL) BASIC METABOLIC PANEL (01/12/2025 10:52 AM GROUNDS KEEPER) GLUCOSE 113(H) 70 - 99 MG/DL 01/12/2025 11:24 AM GROUNDS KEEPER [facility] BUN 15 7 - 18 MG/DL 01/12/2025 11:24 AM [facility] CREATININE S/P/B 0.72 0.55 - 1.02 MG/DL 01/12/2025 11:24 AM GROUNDS KEEPER [facility] SODIUM S/P/B 136 136 - 145 MMOL/L 01/12/2025 11:24 AM GROUNDS KEEPER [facility] POTASSIUM S/P/B 4.5 3.5 - 5.1 MMOL/L 01/12/2025 11:24 AM [facility] CHLORIDE S/P/B 103 97 - 115 MMOL/L 01/12/2025 11:24 AM [facility] CO2 30.1 21 - 32 MMOL/L 01/12/2025 11:24 AM [facility] CALCIUM S/P/B 9.5 8.5 - 10.1 MG/DL 01/12/2025 11:24 AM [facility] ANION GAP 2.9 2 - 10 MMOL/L 01/12/2025 11:24 AM [facility] BUN CREATININE RATIO 20.7 6 - 26 01/12/2025 11:24 AM [facility] GFR ESTIMATE 89(L) >90 ML/MIN/1.7 3 M2 01/12/2025 11:24 AM [facility] Comment: NOTE: eGFR is not calculated for patients <18 years of age or gender unknown. This is an estimated GFR calculation using the new CKD EPI creatinine equation without race and so does not require a correction factor for race. This estimated GFR should not be used for calculating drug doses. 01/12/2025 10:5 2 AM GROUNDS KEEPER us Doug Hernandez MD LABORATORY Final Result [facility] [address] [place] [address], * CBC W/DIFF AUTOMATED (01/12/2025 10:52 AM GROUNDS KEEPER) WBC 7.64 4.5 - 11.0 x10'3/uL 01/12/2025 11:02 AM [facility] RBC 4.71 4.20 - 5.40 x10'6/uL 01/12/2025 11:02 AM [facility] HGB 14.5 12.0 - 16.0 G/DL 01/12/2025 11:02 AM [facility] HCT 44.6 38.0 - 48.0 % 01/12/2025 11:02 AM [facility] MCV 94.7 81.0 - 99.0 FL 01/12/2025 11:02 AM [facility] MCH 30.8 27.0 - 31.0 PG 01/12/2025 11:02 AM [facility] MCHC 32.5 32.0 - 36.0 G/DL 01/12/2025 11:02 AM [facility] RDW 13.0 11.5 - 14.5 % 01/12/2025 11:02 AM [facility] PLT 250 130 - 400 x10'3/uL 01/12/2025 11:02 AM [facility] MPV 10.1 9.3 - 12.2 FL 01/12/2025 11:02 AM [facility] DIFFERENTIAL TYPE AUTOMATED DIFFERENTIAL 01/12/2025 11:02 AM [facility] NEUTROPHILS % 51.4 % 01/12/2025 11:02 AM [facility] LYMPHOCYTES % 34.0 % 01/12/2025 11:02 AM [facility] MONOCYTES % 10.5 % 01/12/2025 11:02 AM [facility] EOSINOPHILS 2.9 % 01/12/2025 11:02 AM [facility] BASOPHILS 0.9 % 01/12/2025 11:02 AM [facility] IMMATURE GRANS % 0.3 % 01/12/20 11:02 AM [facility] ABS. NEUTROPHILS 3.93 1.80 - 7.70 x10'3/uL 01/12/2025 11:02 AM [facility] ABS. LYMPHOCYTES 2.60 1.00 - 4.80 x10'3/uL 01/12/2025 11:02 AM GROUNDS KEEPER [facility] ABS. MONOCYTES 0.80 0.24 - 0.86 x10'3/uL 01/12/2025 11:02 AM GROUNDS KEEPER [facility] ABS. EOSINOPHILS 0.22 0.04 - 0.36 x10'3/uL 01/12/2025 11:02 AM GROUNDS KEEPER [facility] ABS. BASOPHILS 0.07 0.01 - 0.08 x10'3/uL 01/12/2025 11:02 AM GROUNDS KEEPER [facility] ABS. IMMATURE GRANULOCYTES 0.02 0.00 - 0.49 x10'3/uL 01/12/2025 11:02 AM GROUNDS KEEPER [facility] 01/12/2025 10:5 2 AM GROUNDS KEEPER Doug Hernandez MD LABORATORY Final Result [facility] [address] [place] [address], [place] [phone] from Last 3 Months Insurance MEDICARE AET Advance Directives Documents on File Type Date Recorded Patient Cdl Company Driver Expl anation Power of Cardiology Coordinator 12/01/2024 4:06 PM 2018 - NEMO MARQUEZ, [facility]; NATALIA HORN II, 1ST ALTERNATE [employer]-OTHER; DWAYNE BROWN, 2ND ALTERNATE [employer]-OTHER; Advance Directives and Living Will 12/01/2024 4:02 PM Advance Directives and Living Will 09/28/2024 8:16 AM 01/13/2019 DECLARATI ON OF LIVING WILL Healthcare Agents on File Name Relationship Healthcare Agent Relationship Communication Georgina Marquez ([facility]) Spouse Health Care Agent [phone] (Mobile ) Thais Horn II Other First Alternate Health Care Agent Dwayne Brown Other Second Alte rnate Health Care Agent Care Teams Hot Pipe Gauger Relationship Specialty Start Date End Date Jayce Naylor MD [address] [place] [address] PCP - General INTERNAL MEDICINE 07/05/24
--- OUTSIDE RECORDS SUMMARY | 2025-04-04 12:22 | XMS_ITS | Encounter Summary ---
Author Organization [facility] Address [address] [place] [address] Care Team Providers Care Yardage Control Operator Forming Name Role Phone Jayce Naylor MD Primary Care Provider [phone] Encounter Details Date Type Department Care Team (Late st Contact Info) Description 01/11/2025 InstallMonetizer Message Enc [facility], [facility] [address] [place], [place] [id number] Rahul Helton MD Three [facility]. [address] [place] [address] 48hour monitor Social History Tobacco Use Types Packs/Day Years Used Date Smoking Tobacco: Former Cigarettes 1 983 - 1981 Smokeless Tobacco: Never Alcohol Use Standard Drinks/Week Comments Not Currently 1.7 (1 standard drink = 0.6 oz p ure alcohol) Comments No Sex and Gender Information Value Date Recorded Sex Assigned at Female 12/29/2024 12:15 PM TIRE VULCANIZER Legal Sex Female 2:43 PM CDT Gender Identity Not on file Sexual Orientation Not on file documented as of this encounter Functional Status * Calculated C-SSRS Risk Score (Lifetime/Recent) Answer Date of Assessment Author Status No Risk Indicated 01/12/2025 11:46 AM TIRE VULCANIZER Carlene Meyer RN Active * [place] Suicide Severity Rating Scale (Screener/Recent Self-Report) Question Answer Date of Assessment Author Status 1. Wish to be (Past 1 Month) No 01/12/2025 11:46 AM Carlene Weeks RN Activ e 2. Non-Specific Active Suicidal Thoughts (Past 1 Month) No 01/12/2025 11:46 AM Carlene Weeks RN Activ e 6. Suicidal Behavior (Lifetime) No 01/12/2025 11:46 AM Carlene Weeks RN Sena e documented as of this encounter Plan of Treatment Upcoming Encounters Date Type Department Care Team (Late st Contact Info) Description 06/01/2025 11:30 AM CDT Office Visit [facility], [place] [address] [place] [address] Rahul Helton MD [facility]. [place] [address] [place] [address] 09/08/2025 10:15 AM CDT Office Visit [facility] [address] [place] [address] Satish Soto MD [facility]. [facility] [address] [place] [address] documented as of this encounter Visit Diagnoses Not on filedocumented in this encounter Care Teams Yardage Control Operator Forming Relationship Specialty Start Date End Date Jayce Naylor MD [address] [place] [address] PCP - General INTERNAL MEDICINE 07/05/24 documented as of this encounter
--- OUTSIDE RECORDS SUMMARY | 2025-04-04 12:22 | XMS_ITS | Clinical Summary ---
Author Organization [facility] Address [address], [facility] [address] [place] [address] Phone Care Team Providers Care Math And Science Instructor Name Role Phone Carlene Person MD Unavailable [phone] Jayce Naylor MD Primary Care Provider Allergies Active Allergy Reactions Criticality Noted Date Comments Sulfamethoxazole-Trim ethoprim Rash Medium Pt was also in sun, unsure if allergy to Bactrim Ephedrine Other (see Comments) 05/16/2019 Sudafed - caused first episode of a fib Other Other (see Comments) Epi - atrial fib Medications Doxycycline Hyclate 20 MG Tablet Take by mouth in the morning and at bedtime. Active dilTIAZem (CARDIZEM CD) 180 MG CAPSULE SR 24 HR Take 1 Capsule by mouth daily. 90 Capsule 3 4 Active metoprolol Succinate (TOPROL-XL) 50 MG TABLET SR 24 HR Take 1 Tablet by mouth daily. 90 Tablet 1 4 Active spironolactone (ALDACTONE) 50 MG Tablet Take 1 Tablet by mouth daily. 90 Tablet 1 4 Active apixaban (Eliquis) 5 MG Tablet Take 5 mg by mouth 2 times daily. Active tirzepatide-benigno ght management (Zepbound) 2.5 MG/0.5ML Solution Auto-injectorIn dications:Morbi d obesity (HCC),Obstructi ve sleep apnea 2.5 mg by Subcutaneous route once a week. 2 mL 1 Active Active Problems Problem Noted Date Diagnosed Date Presence of Watchman left atrial appendage closu re device 12/12/2024 Overview (12/12/2024): 12/02/24 H/O cardiac radiofrequency ablation 12/12/2024 Overview (12/12/2024): 12/02/24 Paroxysmal atrial fibrillation 08/29/2024 Rosacea 04/19/2024 Primary osteoarthritis of both knees 04/15/2023 Obesity (BMI 30-39.9) 04/15/2023 Essential hypertension, benign 04/14/2022 Hyperglycemia 04/14/2022 Encounters Date Type Department Care Team Description 01/09/2025 Telephone [facility] - [place] [address] [place] [address] Jayce Naylor MD Prior Authorization from Last 3 Months Immunizations Immunization Administration Dates Next Due Covid-19, Mrna, Lnp-s, Pf, 3 0 Mcg/0.3 Ml Dose (Pfizer) 08/27/2021 Covid-19, Mrna, Lnp-s, Pf, 3 0 Mcg/0.3 Ml Dose, Juan-sucrose (SpinPunch somers [place]) 03/10/2022 Influenza Vaccine greater than 3 yrs 09/06/2015 Influenza, High-dose, Quadrivalent 09/16/2023, Influenza, Quadrivalent, Adjuvanted 08/27/2022,0 07/24/2020,07/24/2020 Influenza, Recombinant, Quadrivalent,injectable, Pf 08/01/2021 Influenza, Seasonal, Injecta ble, Undefined 09/06/2015 Influenza, high-dose, trivalent, PF 07/2024,09/29/2019,09/29/2019,09/02,09/01/2018 Pneumococcal Vaccine - 13 Valent 09/02/2018,08/23 Pneumococcal Vaccine Adult - 23 Valent 9,09/12/2019 Pneumococcal conjugate PCV20 , polysaccharide [id number] conjugate, adjuvant, PF 05/16/2024 RSV, Recombinant, Protein Gross bunit Rsvpref, Adjuvant Recon (Arexvy) 10/12/2023 TDAP Vaccine 03/29/2021 Zoster Vaccine Recombinant 06/02/2019,03/24/2019 Zoster Vaccine, live 11/23/2014 Family History Medical History Relation Name Comments No Known Problems Brother Heart Disease Father Hypertension Father Parkinsonism Father Breast Cancer Maternal Aunt 1 Breast Cancer Maternal Aunt 2 Renal Failure Mother No Known Problems Sister 1 No Known Problems Sister 2 Relation Name Status Comments Brother Alive Father Maternal Aunt 1 Maternal Aunt 2 Mother Sister 1 Alive Sister 2 Alive Social History Tobacco Use Types Packs/Day Years Used Date Smoking Tobacco: Never Passive Smoke Exposure: Never Smokeless Tobacco: Never Tobacco Cessation:Counseling Given: Not Answered Comments:smoked very light college Alcohol Use Standard Drinks/Week Comments Yes 0 (1 standard drink = 0.6 oz pur e alcohol) Nanalysisities Answer Date Recorded In the past 12 months has [employer], [employer], oil, or water [employer] threatened to shut off services in your home? No 08/27/2024 Social Connection and Isolat ion Panel [NHANES] Answer Date Recorded In a typical week, how many times do you talk on the phone with family, friends, or neighbors? More than three times a week 08/27/2024 How often do you get togethe r with friends or relatives? Three times a week 08/27/2024 How often do you attend [facility] or church services? Patient declined 08/27/2024 Do you belong to any clubs o r organizations such as synagogue groups, unions, fraternal or athletic groups, or school groups? No 08/27/2024 How often do you attend meet ings of the clubs or organizations you belong to? Patient declined 08/27/2024 Are you , , di vorced, , never , or living with a partner? 08/27/2024 AUDIT-C Answer Date Recorded Q1: How often do you have a drink containing alc ohol? Patient declined 08/27/2024 Q2: How many drinks containi ng alcohol do you have on a typical day when you are drinking? 10 or more 08/27/2024 Q3: How often do you have si x or more drinks on one occasion? Patient declined 08/27/2024 Overall Financial Resource Strain (CARDIA) Answe r Date Recorded How hard is it for you to pa y for the very basics like food, housing, medical care, and heating? Patient declined 08/27/2024 PHQ-2 Answer Date Recorded Total Score - Questions 1-9 0 11/24 [facility] - Occupational Stress Questionnaire Answer Date Recorded Do you feel stress - tense, restless, nervous, or anxious, or unable to sleep at night because your mind is troubled all the time - these days? Only a little 08/27/2024 Exercise Vital Sign Answer Date Recorde d On average, how many days pe r week do you engage in moderate to strenuous exercise (like a brisk walk)? 3 days Minutes of Exercise per Session Not on file 08/27/2024 Hunger Vital Sign Answer Date Recorded Within the past 12 months, y ou worried that your food would run out before you got the money to buy more. Patient declined Within the past 12 months, t he food you bought just didn't last and you didn't have money to get more. Patient declined 03/2024 PRAPARE - Transportation Answer Date Re corded In the past 12 months, has l ack of transportation kept you from medical appointments or from getting medications? No 03/2024 In the past 12 months, has l ack of transportation kept you from meetings, work, or from getting things needed for daily living? No 08/27/2024 Housing Stability Vital Sign Answer Babak e Recorded In the last 12 months, was t here a time when you were not able to pay the mortgage or rent on time? No 04/19/2024 In the last 12 months, how many places have you lived? 1 04/19/2024 In the last 12 months, was t here a time when you did not have a steady place to sleep or slept in a retirement (including now)? No 04/19/2024 Housing Stability Vital Sign Answer Babak e Recorded In the last 12 months, was t here a time when you were not able to pay the mortgage or rent on time? No 08/27/2024 Number of Times Moved in the Last Year Not on fi le 08/27/2024 At any time in the past [address] [facility], were you homeless or living in a retirement (including now)? No 08/27/2024 Education Answer Date Recorded What is the highest level of school you have completed or the highest degree you have received? Bachelor's degree (e.g., BA, AB, BS) 04/08/2023 Sexually Active Control Partners Comments Yes Comments No Sex and Gender Information Value Date Recorded Sex Assigned at Not on file Legal Sex Female 7:36 PM CDT Gender Identity Not on file Sexual Orientation Not on file Last Filed Vital Signs Vital Sign Reading Time Taken Comments Blood Pressure 122/68 12/12/2024 10:41 AM MACHINIST FIRST CLASS Pulse 80 12/12/2024 10:41 AM MACHINIST FIRST CLASS Temperature 36.4 C (97.6 F) 12/12/2024 10:41 AM MACHINIST FIRST CLASS Respiratory Rate 12 04/19/2024 8:28 AM CDT Oxygen Saturation 97% 12/12/2024 10:41 AM MACHINIST FIRST CLASS Inhaled Oxygen Concentration - - Weight 102.1 kg (225 lb) 12/12/2024 10:41 AM MACHINIST FIRST CLASS Height 165.1 cm (5' 5 ) 12/12/2024 10:41 AM MACHINIST FIRST CLASS Body Mass Index 37.44 12/12/2024 10:41 AM MACHINIST FIRST CLASS Plan of Treatment Upcoming Encounters Date Type Department Care Team (Late st Contact Info) Description 04/20/2025 8:30 AM CDT [facility] [address] [place] [id number] Jayce Naylor MD [address] [place] [address] 05/18/2025 9:00 AM CDT [facility] [address] [place] [address] Jayce Naylor MD [address] [place] [address] Health Maintenance Due Date Last Done Comments Hepatitis C Virus (HCV) Screening 1955 Cologuard 2003 Immunochemical Fecal Occult Blood 2003 SARS-COV-2 Immunization ( season) 2025 09/12/2024, 08/12/2023, 09/08/2022, Additional history exists Mammogram 05/16/2025 05/16/2024, 04/24, 03/18/2023, Additional history exists DEXA Bone Density 04/02/2026 04/10/2021 Postponed from 04/10/2023 (Lower Priority for Now) Colonoscopy 09/14/2029 09/14/2024, 08/24, 05/16/2019, Additional history exists Colorectal Cancer Screening 09/14/2029 Td Immunization Every 10 Years (Adults With 1 Tdap) 03/29/2031 03/29/2021 09/14/2024, 08/24, 05/16/2019, Additional history exists Zoster Immunization Completed 06/02/2019, 03/24/2019, 11/23/2014 DTaP/Tdap/Td Immunization Discontinued 03/29/2021 Respiratory Syncytial Virus (RSV) Immunization (Adult) Completed 10/12/2023, 10/01/2023 Pneumococcal Immunization (50+ years) Completed 05/16/2024, 09/12/2019, 09/12/2019, Additional history exists Pneumococcal Immunization Combined Discontinued 05/16/2024, 09/12/2019, 09/12/2019, Additional history exists Influenza Immunization Completed , 09/16/2023, 08/27/2022, Additional history exists Hepatitis B Immunization Aged Out No longer eligible based on patient's age to complete this topic Meningococcal Immunization (ACWY) Aged Out No longer eligible based on patient's age to complete this topic Rotavirus Immunization Aged Out No lo nger eligible based on patient's age to complete this topic Procedures Procedure Name Priority Date/Time Associated Diagnosis Comments DERMATOLOGY CONSULT 01/18/2025 1 2:00 AM MACHINIST FIRST CLASS HM COLONOSCOPY 09/14/2024 12:00 AM CDT BERNICE SCREENING BILATERAL DIGITAL W CAD W FRENCH Routine 05/16/2024 3:10 PM CDT Visit for screening mammogram BERNICE BONE DENSITOMETRY AXIAL SKELETON Routine 04/10/2021 9:45 AM CDT Encounter for screening for osteoporosis Unspecified menopausal and perimenopausal disorder from Last 3 Months or Most Recently Relevant to Health Maintenance Results * DERMATOLOGY CONSULT (01/18/2025 12:00 AM MACHINIST FIRST CLASS) 01/18/2025 us Jayce Naylor MD GENERIC SCAN ORDERS CONSULT Final Result SCAN * HM COLONOSCOPY (09/14/2024 12:00 AM CDT) 09/14/2024 us Provider Scan PROCEDURE/MINOR SURGICAL ORDERAB LES Final Result Performing Organization Address City/[facility] [[email or web address]] Co de Phone Number SCAN * BERNICE SCREENING BILATERAL DIGITAL W CAD W FRENCH (05/16/2024 3:10 PM CDT) Anatomical Region Laterality Modality breast Bilateral Mammography 05/16/2024 2:56 PM CDT Narrative 05/18/2024 1:02 PM CDT - BERNICE SCREENING BILATERAL DIGITAL W CAD W FRENCH BILATERAL DIGITAL SCREENING MAMMOGRAM 3D/2D WITH CAD WITH MEDIOLATERAL OBLIQUE CRANIOCAUDAL: 05/16/2024 The study was acquired using digital technology and interpreted from soft copy. Current study was also evaluated with ICAD version 7.2. 2D digital mammographic views, as well as 3D digital tomosynthesis were performed in the CC and MLO projections. CLINICAL: Routine screening. Patient has no complaints. No personal history of cancer. Two maternal aunts had breast cancer. COMPARISONS: Comparison is made to exams dated: 02/02/2021, 02/06/2022, 03/18/2023, and 02/01/2020 [facility]. BREAST TISSUE:There are scattered fibroglandular densities in both breasts. FINDINGS: No significant masses, calcifications, or other findings are seen in either breast. There has been no significant interval change. IMPRESSION: BI-RAD 1 NEGATIVE There is no mammographic evidence of malignancy. A 1 year screening mammogram is recommended. A letter will be sent to the patient with these results. The patient will be entered into a reminder system with a target due date of 1 year for her next screening exam. Electronically signed by: Bee catherine/penrad:05/18/2024 10:30:34 Front Desk Manager(s): RT Shaista(R)(M), [facility] letter sent: Normal Exam Reading location: [facility] BI-RADS: 1 Negative Procedure Note Bee Borden MD - 05/18/2024 - BERNICE SCREENING BILATERAL DIGITAL W CAD W FRENCH BILATERAL DIGITAL SCREENING MAMMOGRAM 3D/2D WITH CAD WITH MEDIOLATERAL OBLIQUE CRANIOCAUDAL: 05/16/2024 The study was acquired using digital technology and interpreted from soft copy. Current study was also evaluated with ICAD version 7.2. 2D digital mammographic views, as well as 3D digital tomosynthesis were performed in the CC and MLO projections. CLINICAL: Routine screening. Patient has no complaints. No personal history of cancer. Two maternal aunts had breast cancer. COMPARISONS: Comparison is made to exams dated: 02/02/2021, 02/06/2022, 03/18/2023, and 02/01/2020 [facility]. BREAST TISSUE:There are scattered fibroglandular densities in both breasts. FINDINGS: No significant masses, calcifications, or other findings are seen in either breast. There has been no significant interval change. IMPRESSION: BI-RAD 1 NEGATIVE There is no mammographic evidence of malignancy. A 1 year screening mammogram is recommended. A letter will be sent to the patient with these results. The patient will be entered into a reminder system with a target due date of 1 year for her next screening exam. Electronically signed by: Bee catherine/penrad:05/18/2024 10:30:34 Front Desk Manager(s): RT Shaista(R)(M), [facility] letter sent: Normal Exam Reading location: [facility] BI-RADS: 1 Negative Magdalene Parra MD IMG MAMMO ORDERABLES Final Result * [facility] BONE DENSITOMETRY AXIAL SKELETON (04/10/2021 9:45 AM CDT) Anatomical Region Laterality Modality BODY N/A Other 04/10/2021 1:00 PM CDT Impressions 04/10/2021 1:04 PM CDT IMPRESSION: Bone mineral density testing within normal limits. REFERENCE: Bone mineral density: Normal (T-score above or = -1.0) Low bone mass (T-score between -1.0 and -2.5) replaces the previously used term osteopenia Osteoporosis (T-score = or below -2.5) Medical evaluation for secondary causes of low bone mineral density may be appropriate. FRAX is a World Health Organization validated fracture risk assessment tool that calculates a person's 10 year probability of a major osteoporosis related fracture and hip fracture. According to the National Osteoporosis Foundation guidelines, postmenopausal women and men age 50 or older with low bone mass and a 10 year probability of a major osteoporosis related fracture = or greater than 20% or a 10 year probability of a hip fracture = or greater than 3% should be considered for treatment. For further information, including treatment recommendations, please refer to the 2013 ISCD Official Positions (http://www.iscd.org) and the NOF's Clinician's Guide to Prevention and Treatment of Osteoporosis (http://www.nof.org/professionals/clinical-guidelines) Narrative 04/10/2021 1:04 PM CDT EXAM DESCRIPTION: [facility] BONE DENSITOMETRY AXIAL SKELETON REASON FOR STUDY: 65 year old female with given history of screening. 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 Bone mineral density testing of the lumbar spine may be unreliable due to sclerotic degenerative changes. LEFT HIP: Total BMD is 1.087 g/cm2 T-score is 0.6 This is increased by 0.1% when compared to the prior study Femoral neck BMD is 1.019 g/cm2 T-score is -0.1 Fracture risk assessment (FRAX): 10 year risk for a major osteoporotic fracture is 6.6 % 10 year risk for a hip fracture is 0.3 % The FRAX tool has not been validated in patients currently or previously treated with pharmacotherapy for osteoporosis. In such patients, clinical judgement must be exercised in interpreting FRAX scores as the fracture risk may be overestimated. THIS IS AN ELECTRONICALLY VERIFIED FINAL REPORT 04/10/2021 1:00 PM - Electronically signed by Morris LOW: MARANDA Report ID: [id number] Reading Location: [place] [address] Procedure Note Morris Nuñez MD - 04/10/2021 EXAM DESCRIPTION: BERNICE BONE DENSITOMETRY AXIAL SKELETON REASON FOR STUDY: 65 year old female with given history of screening. 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 Bone mineral density testing of the lumbar spine may be unreliable due to sclerotic degenerative changes. LEFT HIP: Total BMD is 1.087 g/cm2 T-score is 0.6 This is increased by 0.1% when compared to the prior study Femoral neck BMD is 1.019 g/cm2 T-score is -0.1 Fracture risk assessment (FRAX): 10 year risk for a major osteoporotic fracture is 6.6 % 10 year risk for a hip fracture is 0.3 % The FRAX tool has not been validated in patients currently or previously treated with pharmacotherapy for osteoporosis. In such patients, clinical judgement must be exercised in interpreting FRAX scores as the fracture risk may be overestimated. THIS IS AN ELECTRONICALLY VERIFIED FINAL REPORT 04/10/2021 1:00 PM - Electronically signed by Morris Nuñez M.D. MARANDA: MARANDA Report ID: [id number] Reading Location: [place] [address] IMPRESSION: Bone mineral density testing within normal limits. REFERENCE: Bone mineral density: Normal (T-score above or = -1.0) Low bone mass (T-score between -1.0 and -2.5) replaces the previously used term osteopenia Osteoporosis (T-score = or below -2.5) Medical evaluation for secondary causes of low bone mineral density may be appropriate. FRAX is a World Health Organization validated fracture risk assessment tool that calculates a person's 10 year probability of a major osteoporosis related fracture and hip fracture. According to the National Osteoporosis Foundation guidelines, postmenopausal women and men age 50 or older with low bone mass and a 10 year probability of a major osteoporosis related fracture = or greater than 20% or a 10 year probability of a hip fracture = or greater than 3% should be considered for treatment. For further information, including treatment recommendations, please refer to the 2013 ISCD Official Positions (http://www.iscd.org) and the NOF's Clinician's Guide to Prevention and Treatment of Osteoporosis (http://www.nof.org/professionals/clinical-guidelines) Jayce Naylor MD IMG DEXA ORDERABLES Final R esult from Last 3 Months or Most Recently Relevant to Health Maintenance Insurance MEDICARE [facility] Care Teams Math And Science Instructor Relationship Specialty Start Date End Date Jayce Naylor MD [address] [place] [address] PCP - General Internal Medicine 02/14/16 Carlene Person MD General Surgery 02/06/16
--- OUTSIDE RECORDS SUMMARY | 2025-04-04 12:22 | XMS_ITS | Encounter Summary ---
Author Organization [facility] Address [address] [place] [address] Phone Care Team Providers Care Return Agent Airport Name Role Phone Carlene Person MD Unavailable [phone] Jayce Naylor MD Primary Care Provider [phone] Reason for Visit * Reason Comments Medication Refill Encounter Details Date Type Department Care Team (Late st Contact Info) Description 04/05/2024 Refill [facility] - Internal [facility] - [place] [address] [place] [address] Jayce Naylor MD [address] [place] [address] Medication Refill Social History Tobacco Use Types Packs/Day Years Used Date Smoking Tobacco: Never Passive Smoke Exposure: Never Smokeless Tobacco: Never Comments:smoked very light c ollege Alcohol Use Standard Drinks/Week Comments Yes 0 (1 standard drink = 0.6 oz pur e alcohol) socially PHQ-2 Answer Date Recorded Total Score - Questions 1-9 0 03/24 Education Answer Date Recorded What is the [...] on file documented as of this encounter Miscellaneous Notes * Telephone Encounter - Nelia Ackerman RN - 04/05/2024 8:33 AM CDT Medication(s) [facility] Medication Refill Standing Order for Pediatricand Adult Patients. Requested Prescriptions Pending Prescriptions Disp Refills spironolactone (ALDACTONE) 25 MG Tablet [Pharmacy Med Name: SPIRONOLACTONE 25MG TABLETS] 180 Tablet3 Sig: TAKE 1 TABLET BY MOUTH TWICE DAILY EVERY DAY Diuretics Protocol Passed - 04/05/2024 5:17 AM Passed - Serum potassium on record in past 12 months POTASSIUM Date Value Ref Range Status 04/15/2023 4.3 3.5 - 5.1 mmol/L Final Passed - Serum sodium on record in past 12 months SODIUM Date Value Ref Range Status 04/15/2023 138 136 - 144 mmol/L Final Passed - Blood pressure on record in past 12 months Clinician-entered: BP Readings from Last 3 Encounters: 04/15/23 116/70 04/14/22 118/72 03/29/21 110/62 Patient-entered: No data recorded Passed - Visit with relevant provider in past 12 months or upcoming 90 days Recent Visits Date Type Provider Dept 04/15/23 Office Visit Jayce Naylor MD [facility] [place] Showing recent visits within past 365 days and meeting all other requirements Future Appointments Date Type Provider Dept 04/19/24 Appointment Jayce Naylor MD [facility] [place] Showing future appointments within next 90 days and meeting all other requirements Passed - GFR on record in past 12 months GFR, EST. NONAFRICAN Date Value Ref Range Status 04/15/2023 >60 >=60 Final dilTIAZem (CARDIZEM CD) 180 MG CAPSULE SR 24 HR [Pharmacy Med Name: DILTIAZEM CD 180MG CAPSULES (24HR)] 90 Capsule 3 Sig: TAKE 1 CAPSULE BY MOUTH EVERY DAY Calcium-Channel Blockers Protocol Passed - 04/05/2024 5:17 AM Passed - BP on record in the past year Clinician-entered: BP Readings from Last 3 Encounters: 04/15/23 116/70 04/14/22 118/72 03/29/21 110/62 Patient-entered: No data recorded Passed - Visit with relevant provider in past 12 months or upcoming 90 days Recent Visits Date Type Provider Dept 04/15/23 Office Visit Jayce Naylor MD [facility] Showing recent visits within past 365 days and meeting all other requirements Future Appointments Date Type Provider Dept 04/19/24 Appointment Jayce Naylor MD [facility] [place] Showing future appointments within next 90 days and meeting all other requirements documented in this encounter Plan of Treatment Upcoming Encounters Date Type Department Care Team (Late st Contact Info) Description 04/20/2025 8:30 AM CDT Office Visit [facility] - Internal Medicine [place] [address] [place] [address] Jayce Naylor MD [address] [facility] [place] [address] 05/18/2025 9:00 AM CDT [facility] [address] [place] [address] Jayce Naylor MD [address] [place] [address] documented as of this encounter Visit Diagnoses Not on filedocumented in this encounter Additional Health Concerns Assessment Noted Time PHQ-9 Depression Total Score: 0 03/29/20 21 9:00 AM CDT documented as of this encounter Care Teams Return Agent Airport Relationship Specialty Start Date End Date Jayce Naylor MD [address] [place] [address] PCP - General Internal Medicine 02/14/16 Carlene Person MD General Surgery 02/06/16 documented as of this encounter
--- NOTE | 2025-04-04 12:23 | ED_ITS ---
HPI - General Adult General Chief complaint: Ear Stated complaint: LT Ear Clogged / Head congestion Time Seen by Provider: 04/04/25 12:32 Source: patient, RN notes reviewed and old records reviewed Mode of arrival: ambulatory Limitations: no limitations History of Present Illness HPI narrative: 69-year-old female presents to the [facility] with 10-13 days left ear o'clock, popping. States she started with head congestion, both ears had fullness. [place] which right ear has cleared up. [place] reports sinus pain and pressure Related Data Home Medications Medication Instructions Recorded Confirmed Last Taken Type diltiazem HCl 180 mg 180 mg PO DAILY 08/21/21 07/06/24 Unknown History capsule,extended release 24 hr metoprolol succinate 25 mg 25 mg PO DAILY 08/21/21 07/06/24 Unknown History tablet,extended release 24 hr spironolactone 25 mg tablet 25 mg PO BID 10/14/21 07/06/24 Unknown History doxycycline hyclate 20 mg tablet 40 mg PO DAILY 07/06/24 07/06/24 Unknown History Allergies Allergy/AdvReac Type Severity Reaction Status Date / Time ephedrine AdvReac Severe Palpitation Verified 04/04/25 12:45 s methylprednisolone (From AdvReac Intermediate Palpitation Verified 04/04/25 12:45 Solu-Medrol) s sulfamethoxazole (From AdvReac Mild Photosensit Verified 04/04/25 12:45 Bactrim) ivity trimethoprim (From Bactrim) AdvReac Mild Photosensit Verified 04/04/25 12:45 ivity Review of Systems Review of Systems: All systems reviewed & are unremarkable except as noted in HPI and below Constitutional: Constitutional: Reports no additional constitutional complaints ENT: Reports as per HPI Cardiovascular: Cardiovascular: Reports no additional cardiovascular complaints, Denies chest pain and Denies dyspnea Respiratory: Respiratory: Reports no additional respiratory complaints, Denies chest congestion, Denies cough and Denies dyspnea Musculoskeletal: Musculoskeletal: Reports no additional musculoskeletal complaints Integumentary/Breasts: Skin/Breast: Reports system reviewed and no additional complaints, except as docu PMF Past Medical History Medical History History of stress test (~2011) Sleep apnea Atrial fibrillation and flutter History of shingles (~05/2007) History of tibial fracture (~07/03/12) Rt (Non Operative) Surgical History Surgical History History of cholecystectomy (~10/07/12) History of surgical removal of ganglion cyst (~09/2010) Lt Lateral Ankle History of breast biopsy (~04/2007) Cyst Removed (Negative) History of wisdom tooth extraction (~2008) Right History of wisdom tooth extraction (~2005) Upper Left History of wisdom tooth extraction (~2002) Lower Left Hx of LASIK (~12/1999) History of breast biopsy (~1988) History of (~1979) Family History Family History Mother Kidney failure Hypertension Heart disease Father Hypertension Heart disease Parkinsons Social History Social History Smoking status: Never smoker Comments At the time of my signature, I reviewed and agree with the nursing past medical, surgical, social, and family history. There is no relevant family history pertinent to the patient complaint. Exam Const: General: cooperative, healthy appearing, comfortable, no acute distress, well developed, alert and well nourished Nutritional Appearance: well nourished Orientation/consciousness: patient oriented x3 Limitations: no limitations HENMT: Head: normal to inspection Ears: hearing grossly normal bilaterally, external ears normal, mastoids normal, no periauricular adenopathy, Abnormal EAC present excessive cerumen on the right; no erythema and TM abnormal bulging on the left and wth effusion serous Face/Nose/Sinus: Normal external nose present, Normal nares present, Abnormal mucous membranes and turbinates present boggy and erythematous and Nasal discharge present clear bilateral Face and sinus: sinus tenderness Mouth: Yes Normal oral and palatal mucosa present, Yes lip normal, Yes tongue normal and Yes moist mucous membranes Throat: posterior oropharynx normal, uvula midline, postnasal drainage and no uvular edema Eyes: General: appearance normal, both eyes and all related structures Alignment and Position: alignment normal Neck: Neck: normal visual inspection, full ROM, no lymphadenopathy and no meningeal signs Chest: Chest palpation & inspection: normal inspection of the chest Resp: Effort & Inspection: normal respiratory effort and able to speak in complete sentences Auscultation: clear to auscultation bilaterally, no crackles, no rales, no rhonchi and no wheezes Cardio: Rate: regular rate Skin: General skin exam: normal color and no rashes or lesions noted Neuro: General: patient oriented x3, gait normal, moves all extremities and no meningeal signs Cognition (Neuro): normal cognition Speech: normal speech Gait exam (Neuro): Normal gait present Extrem: General: normal to inspection, full ROM, capillary refill normal and normal gait Psych: Appearance: grossly normal and well kempt Mental Status: mental status grossly normal Speech and movement: Normal speech and movement present and Clear speech present Affect: normal affect Attitude: cooperative Course Course Level of Care: Express Care Visit Vital Signs Vital signs: Vital Signs Temperature 97.4 F L 04/04/25 12:25 Pulse Rate 69 04/04/25 12:25 Respiratory Rate 18 04/04/25 12:25 Blood Pressure 125/71 04/04/25 12:25 Pulse Oximetry 96 04/04/25 12:25 Oxygen Delivery Room Air 04/04/25 12:25 Temperature 97.4 F L 04/04/25 12:25 Pulse Rate 69 04/04/25 12:25 Respiratory Rate 18 04/04/25 12:25 Blood Pressure 125/71 04/04/25 12:25 Pulse Oximetry 96 04/04/25 12:25 Oxygen Delivery Room Air 04/04/25 12:25 Reviewed Medical Decision Making MDM Narrative Medical decision making narrative: Patient sitting comfortably in exam room. Nontoxic, vitals stable. Patient in no acute distress patient presents with sinus symptoms 10-13 days. Pain pressure as well as boggy erythematous nasal passage discussed with patient to continue the [id number] product. Due to patient's history of tachycardia, AFib will not prescribe a steroid as well as her past medical history with steroids. Encourage patient to use erds-oav-[id number] products as well as will prescribe Augmentin patient appropriate for outpatient treatment with close Discharge instructions reviewed with patient, as well as provided in writing per nursing staff. The instructions also include specific and strict return/GO TO THE ER as well as f/u information. All questions have been answered, and the patient deny any further questions with discharge and discharge plan. Some parts of this dictation were generated by voice recognition software and may contain typographical and/or grammatical inaccuracies. Differential Diagnosis Differential Diagnosis: strep, sinusitis, flu, COVID bronchitis, otitis media Medical Records Medical records reviewed: Yes I reviewed the external patient's medical records. Vital Signs Vital Signs: Vital Signs Temperature 97.4 F L 04/04/25 12:25 Pulse Rate 69 04/04/25 12:25 Respiratory Rate 18 04/04/25 12:25 Blood Pressure 125/71 04/04/25 12:25 Pulse Oximetry 96 04/04/25 12:25 Oxygen Delivery Room Air 04/04/25 12:25 Temperature 97.4 F L 04/04/25 12:25 Pulse Rate 69 04/04/25 12:25 Respiratory Rate 18 04/04/25 12:25 Blood Pressure 125/71 04/04/25 12:25 Pulse Oximetry 96 04/04/25 12:25 Oxygen Delivery Room Air 04/04/25 12:25 Reviewed Lab Data Lab results reviewed: Yes I reviewed the patient's lab results. Labs: Reviewed Critical Care Time Critical Care Time Critical Care Time: No Discharge Plan Discharge Clinical Impression: Impacted cerumen of right ear Sinusitis Qualifiers: Sinusitis location: pansinusitis Chronicity: acute Recurrence: not specified as recurrent Qualified Code(s): J01.40 - Acute pansinusitis, unspecified Patient Disposition: Home Condition: Stable Instructions: Antibiotic Form, Carbamide Peroxide (Into the ear), Sinusitis (ED), Fluid In The Ear (Serous Otitis Media) (ED) Additional Instructions: It is very important to treat your symptoms. Drink plenty of water, Gatorade, Pedialyte, ice pops or Jell-O. -Alternate Tylenol and Motrin per package directions for fever or pain. You can alternate every 4 hours -Antihistamine medication such as Zyrtec/Claritin/Paola during the day can help improve symptoms. -doing daily nasal irrigations can help relieve pressure your sinuses. Things like a Neti pot -Use Flonase twice a day for 5 days then daily to help reduce the inflammation and dry up your sinuses. -You can also use Coricidin HBP. Be sure to drink plenty of water with this medication at least 8 ounces with every dose and it is important to drink 8 to 10 glasses of water per day. Water is a natural decongestant -Eat and drink things that are easy to swallow, like tea or soup, or popsicles. -Oral rinses such as: Salt water gargles and/or may use topical anesthetic (eg. Chloraseptic spray) or lozenges to relieve dryness or throat pain). -Frequent hand washing or hand associate relations specialist is one of the best ways to prevent spread of infection. -Using a vaporizer or humidifier at night will also help thin secretions and help with coughing up phlegm. -Follow up with primary care provider in 7-10 days if condition is not improving - For new or worsening symptoms go directly to the nearest ER You had Cerumen (EAR wax impaction). Do not use Q-tips or put anything in the ear. This can damage the ear. Instead , use Debrox or ear wax remover. Place 5 drops in ear after a hot shower and place a warm compress over the ear for 20 minutes. alternate doing this every 3-4 days. It will break up the wax gently. Do not use too much pressure. Once you have all of the cerumen out of your ears, you may do preventative treatment to prevent this from happening again. Use 5 drops once weekly after a hot shower. Patient Language: Greenlandic Prescriptions: New amoxicillin-pot clavulanate 875-125 mg tablet 1 tablet PO Q12H Qty: 14 0RF No Action doxycycline hyclate 20 mg tablet 40 mg PO DAILY diltiazem HCl 180 mg capsule,extended release 24hr 180 mg PO DAILY metoprolol succinate 25 mg tablet extended release 24 hr 25 mg PO DAILY spironolactone 25 mg tablet 25 mg PO BID Follow-up/Referrals: Dayday,Jayce Espino MD [Primary Care Provider] - 1 Week ( [facility] follow- up) Stand Alone Forms: Work/School Release IP Time of Disposition: 12:55
--- OUTSIDE RECORDS SUMMARY | 2025-04-04 12:23 | XMS_ITS | Continuity of Care Document ---
Author Organization [facility] [place] [address] [place] [address] Phone Care Team Providers Care Ginning Operator Name Role Phone Negro OD, Nadja Unavailable Unavailable Allergies, Adverse Reactions, Alerts Substance Reaction Status Criticality PSEUDOEPHEDRINE HCL Active No Infor mation ephedrine Active No Information Medications Medication Instructions Dosage Effective Dates (start - stop) Status Comments Zaditor 0.025 % (0.035 %) eye drops instill 1 drop by ophthalmic route 2 times every day into affected eye(s) 1.00 drop - Active Eliquis 2.5 mg tablet take 1 tablet by oral route 2 times every day 2.5 MG - Active doxycycline hyclate 20 mg tablet take 1 tablet by oral route 2 times every day 1 hour before a meal or 2 hours after a meal 20 MG - Active Cardizem CD 180 mg capsule,extended release take 1 capsule by oral route every day 180 MG - Active metoprolol succinate ER 25 mg tablet,extended release 24 hr take 1 tablet by oral route every day 25 MG - Active spironolactone 25 mg tablet take 1 tablet by oral route every day 25 MG - Active Procedures Procedure Date No Charge [facility] Fundus Photos 025 Office/outpatient Visit, Est Fundus Photography W/ Report Office/outpatient Visit, Est No Charge [facility] Fundus Photos 024 Corneal Pachymetry Eye Exam & Treatment Oct- Fundus Photography W/ Report Oct- Eye Exam & Treatment Oct- Office/outpatient Visit, Est Corneal Pachymetry Oct- No Charge [facility] Fundus Photos Oct-20-2 022 Eye Exam & Treatment Oct- No Charge [facility] Fundus Photos Oct-14 021 Corneal Pachymetry Oct- Eye Exam & Treatment Oct- Office/outpatient Visit, Est Office/outpatient Visit, Est Corneal Pachymetry Oct- Eye Exam & Treatment Aug- No Charge Optomap Fundus Photos Oct-- 020 Office/outpatient Visit, Est Office/outpatient Visit, Est Office/outpatient Visit, Est Eye Exam & Treatment Aug- Office/outpatient Visit, Est Office/outpatient Visit, Est Eye Exam & Treatment Corneal Pachymetry Eye Exam & Treatment Eye Exam & Treatment Eye Exam & Treatment Eye Exam & Treatment Office/outpatient Visit, Est Eye Exam & Treatment Advance Directives Directive Yes / No Effective Date File Name No Information Encounters Encounter Description Practice Location Reason(s) For Visit Diagnoses Date Provider Providers Copied on Encounter Office/outpa [place]ient Visit, [facility] [place] [address], [place], [place], [address], tel:[phone] [place] Flashes of light (chief complaint) Visual aura 5 Negro OD Nadja. [address] [place] [address] [address], [address], [place], [place], [address], . tel:[phone] Referring Provider: Evans Concepcion, [address] [address], [place], [address] . tel:[phone] Office/outpa tient Visit, Est [facility], [address], [place], [place], [address], [place] tel:[phone] SEC [place] Flash of light in vision (chief complaint) Endothelial corneal dystrophy, bilateralCon junctivochal asis of both eyesHistory of laser assisted in situ keratomileus isVitreous syneresis of right eye 5-202 5 Negro OD Nadja. [facility] [address], [address], [place], [place], [address], [place]. tel:[phone] Referring Provider: Jose M Leroy, [address], [place], [address] . tel:[phone] [facility], [address], [place], [place], [address], [place] tel:[phone] [place] Professional Complete Exam (chief complaint) Endothelial corneal dystrophy, bilateralAge -related nuclear cataract, bilateralDry eyes, bilateralHis tory of laser assisted in situ keratomileus is Oct-3 0-202 4 Lorenzo OD Natty. [address], [address], [place], [place], [address], [place]. tel:[phone] Referring Provider: Evans Concepcion, [address] [facility] [address], [place], [address] . tel:[phone] [facility], [address], [place], [place], [address], [place] tel:[phone] [place] Professional Complete Exam (chief complaint) Endothelial corneal dystrophy, bilateralCon junctivochal asis of both eyesAge-rela stephanie nuclear cataract, bilateralHis tory of laser assisted in situ keratomileus is Oct-2 3-202 3 Negro OD Nadja. [address], [address], [place], [place], [address], [place]. tel:[phone] Referring Provider: Evans Concepcion, [address], [place], [address] . tel:[phone] Office/outpa tient Visit, Est [facility], [address] [place] [address] [address], [place], [place], [address], [place] tel:[phone] [place] Professional Irritation (chief complaint) Allergic conjunctivit is of both eyes May-0 - 3 Yoni Krueger. [address], [address], [place], [place], [address], [place]. tel:[phone] Referring Provider: Evans Concepcion, [address], [place], [address] . tel:[phone] [facility], [address] [place] [address] [address], [place], [place], [address], [place] tel:[phone] SEC Kenny Seoh Complete Exam (chief complaint) Age-related nuclear cataract, bilateralEnd othelial corneal dystrophy, bilateralHis tory of laser assisted in situ keratomileus is Oct-2 0 2 Yoni Krueger. [address], [address], [place], [place], [address], [place]. tel:[phone] Referring Provider: Evans Concepcion [address], [place], [address] . tel:[phone] [facility], [address] [place] [address] [address], [place], [place], [address], [place] tel:[phone] SEC Kenny N [address] Complete Exam (chief complaint) Age-related nuclear cataract, bilateralEnd othelial corneal dystrophy, bilateralHis tory of laser assisted in situ keratomileus isPeripapill javi atrophy of left eye Oct-1 1 Yoni Krueger. [address], [address], [place], [place], [address], [place]. tel:[phone] Referring Provider: Evans Concepcion [address], [place], [address] . tel:[phone] Office/outpa tient Visit, [facility], [address] [place] [address] [address], [place], [place], [address], [place] tel:[phone] SEC [place] TEIXEIRA Professional 2 week Follicular Conjunctiviti s (chief complaint) Chronic follicular conjunctivit is of left eye 1 Yoni Krueger. [address], [address], [place], [place], [address], [place]. tel:[phone] Referring Provider: Evans Concepcion [address] [facility] [address], [place], [address] . tel:[phone] Office/outpa tient Visit, [facility] [place], [address] [place] [address] [address], [place], [place], [address], [place] tel:[phone] SEC Kenny [place] WIE possible infection (chief complaint) Chronic follicular conjunctivit is of left eye 1 Yoni Krueger. [address] [facility], [address], [place], [place], [address], [place]. tel:[phone] Referring Provider: Evans Concepcion [address] [facility] [address], [place], [address] . tel:[phone] [facility], [address] [place] [address] [address], [place], [place], [address], [place] tel:[phone] SEC Kenny Howard Complete Exam (chief complaint) Age-related nuclear cataract, bilateralEnd othelial corneal dystrophy, bilateralCon junctivochal asis of both eyesHistory of laser assisted in situ keratomileus is Oct-0 0 Yoni Krueger. [address], [address], [place], [place], [address], [place]. tel:[phone] Referring Provider: Maria Dolores Bauman[address] [facility] [place], [address] . tel:[phone] [facility], [address] [place] [address] [address], [place], [place], [address], [place] tel:[phone] SEC [place] Professional No Information 0 Yoni Krueger. [address] [facility] [place], [address], [place]. tel:[phone] Office/outpa tient Visit, [facility], [address] [place] [address] [address], [place], [place], [address], [place] tel:[phone] [place] Professional Follow up visit (chief complaint) Viral conjunctivit is of left eye Jan- 0 Yoni Krueger. [address] [facility] [place], [address], [place]. tel:[phone] Referring Provider: Evans Concepcion, [address] [facility] [place], [address] . tel:[phone] Office/outpa tient Visit, [facility], [address] [place] [address] [address], [place], [place], [address], [place] tel:[phone] SEC [place]UVIA Professional WIE (chief complaint) Viral conjunctivit is of left eye 0 Yoni Krueger. [address] [facility] [address], [place], [place], [address], [place]. tel:[phone] Referring Provider: Evans Concepcion, [address] [place], [address] . tel:[phone] Office/outpa tient Visit, [facility], [address] [place] [address] [address], [place], [place], [address], [place] tel:[phone] [place] Professional WIE (chief complaint) Viral conjunctivit is of left eye 0 Yoni Krueger. [address], [address], [place], [place], [address], [place]. tel:[phone] Referring Provider: Evans Concepcion, [address], [place], [address] . tel:[phone] [facility], [address] [place] [address] [address], [place], [place], [address], [place] tel:[phone] SEC [place] [address] Complete Exam (chief complaint) Fuchs' corneal dystrophyAge -related nuclear cataract, bilateralAll ergic conjunctivit is of both eyes Oct-0 - 9 Yoni Krueger. [address], [address], [place], [place], [address], [place]. tel:[phone] Referring Provider: Evans Concepcion, [address], [place], [address] . tel:[phone] Office/outpa tient Visit, [facility], [address], [place], [place], [address], [place] tel:[phone] SEC [place] N [address] Allergic conjunctiviti s f/u (chief complaint) Allergic conjunctivit is of both eyes Mar-2 - 9 Yoni Krueger. [address], [address] [place], [address], [place]. tel:[phone] Referring Provider: Evans Concepcion, [address], [place], [address] . tel:[phone] Office/outpa tient Visit, [facility], [address] [place] [address] [address], [place], [place], [address], [place] tel:[phone] SEC [place] [address] Redness (chief complaint) Allergic conjunctivit is of both eyes Sylvester-0 - 9 Yoni Krueger. [address], [address], [place], [place], [address], . tel:[phone] Referring Provider: Evans Concepcion, [address] [facility] [address], [place], [address] . tel:[phone] [facility], [address], [place], [place], [address], tel:[phone] [place] Professional Complete Exam (chief complaint) No Information 5201 8 Yoni Krueger. [address] [facility], [address], [place], [place], [address], . tel:[phone] Referring Provider: Evans Concepcion, [address] [facility] [address], [place], [address] . tel:[phone] [facility], [address], [place], [place], [address], tel:[phone] SEC [place] Professional routine exam (chief complaint) No Information 3-201 6 Sal Ghosh. [address] [facility] [place], [address], . tel:[phone] Referring Provider: Augie Leroy, [address] [facility] [address], [place], [address] . tel:[phone] [facility], [address], [place], [place], [address], tel:[phone] [place] Professional No Information 4 Sal Ghosh. [address] [facility] [place], [address], . tel:[phone] Referring Provider: Augie Leroy, [address] [place], [address] . tel:[phone] [facility], [address], [place], [place], [address], [place] tel:[phone] SEC [place] Professional No Information Apr- 0-201 4 Adria Salguero. [address], [address], [place], [place], [address], [place]. tel:[phone] [facility], [address] [place] [address] [address], [place], [place], [address], [place] tel:[phone] SEC [place] Professional No Information Mar-2 6-201 2 Wankum Augie. [address], [address], [place], [place], [address], [place]. tel:[phone] [facility], [address] [place] [address] [address], [place], [place], [address], tel:[phone] SEC [place]UV[place] Professional No Information Apr-1 4-201 0 Wankum Augie. [address], [address], [place], [place], [address], . tel:[phone] Office/outpa tient Visit, Est [facility], [address] [place] [address] [address], [place], [place], [address], [place] tel:[phone] SEC [place] Professional No Information Aug-0 5-200 9 Wankum Augie. [address], [address], [place], [place], [address], [place]. tel:[phone] [facility], [address] [place] [address] [address], [place], [place], [address], [place] tel:[phone] SEC [place] Professional No Information Oct-2 2-200 8 Wankum Augie. [address], [address], [place], [place], [address], . tel:[phone] Family History Family Member Type Diagnosis Age At Onset Grandfather (p) Problem (finding) Diabetes mellitus Unknown Problem (finding) glaucoma Payers Payer name Insurance type Covered alliance party ID Authoriza tiantonio(s) [place] [id number] Aetna Mdcr Supp CI [id number] Social History Type Description Quantity Date Captured Comments Alcohol Use Details 1 drink weekly Caffeine Use Details 2 cups per day Tobacco Use Status Ex-cigarette smoker 025 Smoking Status Former smoker Smoking Tobacco Use Details Cigarette: Age Stopped: 28 Cigarette: 1 Packs per day Sex Female Chief Complaint And Reason For Visit From encounter dated '12/13/2024 13:30'. Flashes of light (chief complaint). Description: The 69 year old patient presents for evaluation ofFlashes of light in the right eye. Pt was seen last week with diagnosis of Vit. syneresis OD. Pt since has noticed flashes of light off to the side multiple times this past few days. Occurs at different times and last different times. Pt seeing half salazar like arc with flashes around. The flashes moves not always off to side but central at times. Reason For Referral Reason For Referral No Information Plan Of Treatment Date Type Action Status Goal Tobacco cessation counseling completed Goal Tobacco cessation counseling completed Goal Tobacco cessation counseling completed Goal Tobacco cessation counseling completed Patient Education Cataracts: Care Instruc tions completed Patient Education Pinkeye: Care Instructi ons completed Patient Education Cataracts: Care Instruc tions completed Patient Education Cataracts: Care Instruc tions completed Patient Education Pinkeye: Care Instructi ons completed Patient Education Cataracts: Care Instruc tions completed Patient Education Pinkeye: Care Instructi ons completed Patient Education Pinkeye: Care Instructi ons completed Patient Education Pinkeye: Care Instructi ons completed Patient Education Learning About Your Eye s completed Patient Education Learning About Your Eye s completed History Of Present Illness Encounter Date Complaint History Of Prese nt Illness Flashes of light The 69 year old patient presents for evaluation of Flashes of light in the right eye. Pt was seen last week with diagnosis of Vit. syneresis OD. Pt since has noticed flashes of light off to the side multiple times this past few days. Occurs at different times and last different times. Pt seeing half salazar like arc with flashes around. The flashes moves not always off to side but central at times. Flash of light in vision The 69 year old patient presents for evaluation of Flash of light in vision in the right eye. Pt states 2 days ago she bent down to spanish moss picker something and when she sat does and saw flash of light in OD. When closed eye saw arc of light centrally with sparkles of light also. Pt states the arc then seemed to move upward and across. Pt states incident occurred for about 1 minute but resolved. Has not occurred since. Pt has h/o floaters. Pt states she did have Cardiac ablation this past week with anesthesia. Complete Exam The 69 year old patient presents for evaluation of Complete Exam in the right eye and left eye. Monitoring Cataracts OU and Fuchs OU. Pt has noticed her NV is changing and she feels like she is going to need to up her OTC reader strength a little bit soon. Pt states DV feels stable OU since last visit. Pt states itchy allergy eyes have seemed to be doing better this year and is just using the Zaditor PRN. Complete Exam The 68 year old patient presents for evaluation of Complete Exam in the right eye and left eye. Pt states vision seems okay but close up vision seems to be getting worse but distance vision seems to be doing good. Pt is taking Zaditor BID OU. Pt states gtts from last time worked just fine for the infection. Irritation The 67 year old patient presents for evaluation of Irritation in the left eye. Pt using Zaditor OU prn, she used it the morning. Pt states OS became red, irritated, and scratchy yesterday after potting plants outside. Pt states she gets this about 2 x per yr, and the last time is started was about January of last lizzy. Complete Exam The 67 year old patient presents for evaluation of Complete Exam monitoring Fuch's in the right eye and left eye. Patient denies any problems or changes with eyes. VA seems stable OU. Patient uses Systane prn OU. Complete Exam The 66 year old female presents for evaluation of Complete Exam in the right eye and left eye. Hx of Cataracts OU, Refractive sx OU, and Fuch's OU. Patient denies any problems or changes with eyes. VA seems stable OU. Patient using Zaditor prn OU. 2 week Follicular Conjunctivitis The 65 year old female presents for evaluation of 2 week Follicular Conjunctivitis in the left eye. Patient states the left eye is much better. Patient using Tobradex qid OS. WIE possible infection The 65 ye ar old female presents for evaluation of WIE possible infection in the left eye. Hx Cataract OU, Fuchs' dystrophy OU. Pt reports tearing, redness and itching OS for about 36 hours. Pt denies milky discharge and light sensitivity OS. Pt has been taking Polytrim QID OS with no changes in symptoms. She also has Tobradex, but has not used it. Complete Exam The 65 year old female presents for a complete exam ou. Patient has hx of refractive sx ou. Monitoring Fuchs ou. Patient denies any changes in vision ou. Patient wears OTC reading glasses. Follow up visit The 64 year old female presents for a 2 week follow up for viral conjunctivitis OS. Patient is using Tobramycin/dex tid OS. Patient states OS is doing good. Patient states OS was much better after 24 hours of using the drop. WIE The 64 year old female presents for evaluation of WIE in the left eye. Patient was seen here about 1 month ago for viral conjunctivitis OS and patient states it is back. Patient just started back using Polytrim again on yesterday. Patient states OS is red. Patient states the drop helps but when she stops it the redness seems to come back. Patient has hx of Lasik ou, Fuchs ou and cataracts ou. WIE The 64 year old female presents for evaluation of WIE in the left eye. Hx of LASIK OU, FUCH's OU, and Cataracts OU. Patient states the left eye is red x 3 days and this am the left eye was aching. Patient using Zaditor bid OU. Complete Exam The 64 year old female presents for evaluation of Complete Exam in the right eye and left eye. Hx Lasik OU. Pt reports stable vision with OTC readers for near x 6 months. Pt reports using Zaditor BID OU and it help with allergy related irritations. Allergic conjunctivitis f/u The 63 year old female presents for evaluation of 3 mo Allergic conjunctivitis f/u in the right eye and left eye. Pt was using Olopatadine BID OU for 1 mo, started Zaditor bid ou and has been using that for the last 6 weeks. Pt notes major improvement in redness, denies any pain or irritation. Redness The 63 year old female presents for evaluation of Redness in the right eye. Pt states OD started getting red 2 days ago. States it feels irritated but there is no pain or discharge. States OD feels dry. She has used Ofloxacin in the past when this happens and it clears her eye. States this happens about 1x a month. She has replaced all eye makeup. Complete Exam The 62 year old female presents for evaluation of Complete Exam in the right eye and left eye. Hx of LASIK OU. Patient denies any problems or changes with her VA or eyes. Patient states it's time for exam and wants her pressure checked. routine exam The 61 year old female presents for a routine exam. Pt is s/p LASIK OU. Pt states she is happy with her vision, unaware of any vision changes. Pt wears OTC for reading only. Pt denies any pain or discomfort. Pt does not use any gtts. Functional Status Date Functional Assessmen t No Information Instructions Date Instruction Additional Infor tere Impression/Plan Impression/Plan Impression/Plan Impression/Plan Impression/Plan Impression/Plan Impression/Plan Impression/Plan Impression/Plan Impression/Plan Impression/Plan Impression/Plan Impression/Plan Impression/Plan Impression/Plan Impression/Plan Educational material given Relat ed to History of laser assisted in situ keratomileusis Impression/Plan Impression/Plan - Di scussed diagnosis in detail with patient. Recommend OTC readers for near. Artificial tears prn for dry eyes. IOP good, no signs of glaucoma or AMD OU. Apply warm compresses and massage eyelids every morning. Same rx written for glasses. Return to clinic in 1 year for complete exam or sooner with any problems. Dry eyes, bilateral - Educational material given Related to Dry eyes, bilateral Follow up - Return i n 1 year with Augie Huang M.D. for Complete Exam. General plan -Dry Ey e Syndrome - Discussed diagnosis in detail with pt. Previous rx for glasses provided to pt today. RTC in 1-2 years for a complete exam. Educational materials provided:about today's exam. Related to See impression: general plan - RTC in 1-2 years f or a complete exam Related to See impression: general plan Assessments Type Assessment Date assessment Visual aura Patient Care Teams Name Effective Dates (start - stop) Status Members No Information
[2025-04-04 12:25] VITALS: BP 125/71; PULSE 69; RESP 18; TEMP 36.3; O2SAT 96
== END 2025-04-04 13:05 | disposition home or self-care (01) ==
PROVIDERS: Emergency Provider Nurse Practitioner; PCP Internal Medicine
DX: J01.40 Acute pansinusitis, unspecified (principal); H61.21 Impacted cerumen, right ear; I48.91 Unspecified atrial fibrillation
CPT/HCPCS: 99213; G0463